=== PATIENT | female | born 1935 | race Caucasian/White ===

== ENCOUNTER 2016-09-15 10:03 | Inpatient (IN) | payer MEDICARE, OTHER ==
[2016-09-15 10:17] LABS: Hematocrit 43 % (35-47); Hemoglobin 14.3 g/dl (12.0-16.0); Mean Corpuscular HGB Conc 33 g/dl (31-36); Mean Corpuscular Hemoglobin 31 pg (27-31); Mean Corpuscular Volume 94 fL (80-97); Mean Platelet Volume 7 um3 (7.4-10.4); Red Blood Count 4.63 10^6/ul (4.0-5.4); Red Cell Distribution Width 12 % (10.5-15); White Blood Count 9.5 10^3/ul (3.5-10.8)
[2016-09-15 10:30] LABS: Albumin 4.1 g/dL (3.2-5.2); BUN/Creatinine Ratio 18.5 (8-20); Calcium 9.7 mg/dL (8.6-10.3); EGFR African American 75.9 (>60); Globulin 2.7 g/dL (2-4); Potassium 3.6 mmol/L (3.5-5.0); Total Bilirubin 0.6 mg/dL (0.2-1.0); Total Protein 6.8 g/dL (6.4-8.9)
[2016-09-15 10:32] LABS: Troponin I 0.01 ng/mL (<0.04)
--- NOTE | 2016-09-15 10:41 | RAD ---
INDICATION: Slurred speech. COMPARISON: Comparison is made with a prior CT of the brain from July 09, 2015. TECHNIQUE: Contiguous axial sections of the brain were obtained from the skull base to the vertex without contrast. FINDINGS: The ventricles, cisterns and sulci are enlarged consistent with diffuse atrophy. There are multiple focal areas of decreased density in the subcortical and periventricular white matter suggestive of moderate chronic small vessel ischemic changes. There is no evidence for hemorrhage. No significant focal osseous abnormality is seen. The visualized portion of the paranasal sinuses and mastoid air cells appear clear. IMPRESSION: 1. NO EVIDENCE FOR GROSS ACUTE INFARCT, MASS EFFECT OR HEMORRHAGE. 2. ATROPHY AND FINDINGS MOST CONSISTENT WITH MODERATE CHRONIC SMALL VESSEL ISCHEMIC CHANGES.
[2016-09-15] MEDS ORDERED: Aspirin TAB* 325 MG PO ONE (11:21)
[2016-09-15] MEDS ORDERED: Acetaminophen TAB* 325 MG PO PRN (12:02)
--- NOTE | 2016-09-15 14:36 | ED ---
Nadia Rao Matthew, scribed for Joel Shetty MD on 09/15/16 at 1019 . Neurological HPI - HPI Summary HPI Summary: A 80 y/o female presents to the ED by EMS for left arm weakness since waking up this morning. However, since onset, her left arm weakness has since partially alleviated. The patient states that she woke-up with this symptom. Associated symptoms include slurred speech and left sided facial droop. The patient denies any pain. She states that she woke-up to use the restroom at approximately 2:00 and felt fine at that time; however, an exact timeline is unknown. She did not take her daily dose of aspirin this morning. She is not on blood thinners. PMHx includes HTN, AFib, and 2 TIAs. She has No Hx of ID. - History of Current Complaint Chief Complaint: EDNeurologicalDeficit Stated Complaint: POSSIBLE STROKE Time Seen by Provider: 09/15/16 10:09 Hx Obtained From: Patient Onset/Duration: Started hours ago, Still Present Timing: Constant Onset Severity: Moderate Current Severity: Mild Neurological Deficit Location: LUE Pain Intensity: 0 Pain Scale Used: 0-10 Numeric Character: Motor Weakness - LUE, Other: - Left sided facial droop Associated Signs and Symptoms: Positive: Weakness - LUE, Impaired Speech - Additional Pertinent History Primary Care Physician: JUDD - Allergy/Home Medications Allergies/Adverse Reactions: Allergies Allergy/AdvReac Type Severity Reaction Status Date / Time Latex Allergy Unknown Verified 09/15/16 10:09 Reaction Details Home Medications: Home Medications Lactobacillus [Probiotic] 2 cap PO BID 09/15/16 [History Confirmed 09/15/16] Psyllium [Metamucil] 0.52 gm PO TID 09/15/16 [History Confirmed 09/15/16] Sennosides-Docusate Sodium [Senna-S 8.6-50 mg] 1 tab PO BEDTIME 09/15/16 [ History Confirmed 09/15/16] PMH/Surg Hx/FS Hx/Imm Hx Endocrine/Hematology History: Denies: Hx Diabetes, Hx Systemic Lupus Erythematosus, Hx Sickle Cell Disease , Hx Thyroid Disease Cardiovascular History: Reports: Hx Hypertension, Hx Syncope Denies: Hx Congestive Heart Failure, Hx Pacemaker/ICD Respiratory History: Reports: Hx Asthma - A CHILD, Hx Seasonal Allergies Denies: Hx Chronic Obstructive Pulmonary Disease (COPD) GI History: Reports: Other GI Disorders - Used to have CONSTIPATION Denies: Hx Ulcer History: Reports: Hx Kidney Stones - Ureteral stones Denies: Hx Dialysis, Hx Renal Disease Musculoskeletal History: Denies: Hx Arthritis, Hx Rheumatoid Arthritis, Hx Gout, Hx Osteoporosis Sensory History: Reports: Hx Contacts or Glasses, Hx Hearing Aid Opthamlomology History: Reports: Hx Contacts or Glasses Neurological History: Reports: Hx Transient Ischemic Attacks (TIA) - current dx , Other Neuro Impairments/Disorders - "spells" Comment Only: Hx Dementia - vascular dementia? Psychiatric History: Reports: Hx Anxiety, Hx Depression - lonely Denies: Hx Panic Disorder - Cancer History Cancer Type, Location and Year: BREAST Hx Chemotherapy: No Hx Radiation Therapy: No Hx Palliative Cancer Treatment: No - Surgical History Surgery Procedure, Year, and Place: 1979 PARTIAL HYSTERECTOMY/1984 MODIFIED RADICAL MASTECTOMY / RT BREAST SURGERY FOR CA./1990 CERVICAL DISC FUSION ,/1993 PERIPHERAL SELECTIVE DENERRATION IN HEAD 1993 FOR DISTONIA.(?) / LT BREAST BIOSPY Hx Anesthesia Reactions: No Infectious Disease History: No Infectious Disease History: Denies: Hx Hepatitis, Hx Human Immunodeficiency Virus (HIV), History Other Infectious Disease, Traveled Outside the [place] in Last 30 Days - Family History Family History: No FHx of malignant hyperthermia. No FHx of anesthesia reaction - Social History Alcohol Use: None Substance Use Type: Reports: None Smoking Status (MU): Never Smoked Tobacco Have You Smoked in the Last Year: No Review of Systems Constitutional: Negative Eyes: Negative ENT: Negative Cardiovascular: Negative Respiratory: Negative Gastrointestinal: Negative Genitourinary: Negative Musculoskeletal: Negative Skin: Negative Neurological: Other - Left sided facial droop Positive: Weakness - LUE, Slurred Speech Psychological: Normal All Other Systems Reviewed And Are Negative: Yes Physical Exam Vital Signs On Initial Exam: Initial Vitals Temp Pulse Resp BP Pulse Ox 98.8 F 69 14 152/79 98 09/15/16 10:05 09/15/16 10:05 09/15/16 10:05 09/15/16 10:05 09/15/16 10:05 Appearance: Positive: Well-Appearing, Well-Nourished Skin: Positive: Warm, Skin Color Reflects Adequate Perfusion, Dry Head/Face: Positive: Normal Head/Face Inspection Eyes: Positive: Normal ENT: Positive: Normal ENT inspection Neck: Positive: Supple, Nontender Respiratory/Lung Sounds: Positive: Clear to Auscultation, Breath Sounds Present Cardiovascular: Positive: RRR Abdomen Description: Positive: Nontender, Soft Bowel Sounds: Positive: Present Musculoskeletal: Positive: Normal Neurological: Positive: Facial Droop - left sided, Slurred Speech Diagnostics - Vital Signs Vital Signs Temp Pulse Resp BP Pulse Ox 09/15/16 10:05 98.8 F 69 14 152/79 98 - Laboratory Lab Results: Lab Results 09/15/16 09/15/16 09/15/16 Range/Units 10:00 10:00 10:00 WBC 9.5 (3.5-10.8) 10^3/ul RBC 4.63 (4.0-5.4) 10^6/ul Hgb 14.3 (12.0-16.0) g/dl Hct 43 (35-47) % MCV 94 (80-97) fL MCH 31 (27-31) pg MCHC 33 (31-36) g/dl RDW 12 (10.5-15) % Plt Count 266 (150-450) 10^3/ul MPV 7 L (7.4-10.4) um3 Neut % (Auto) 65.0 (38-83) % Lymph % (Auto) 25.9 (25-47) % Mesa % (Auto) 6.8 (1-9) % Eos % (Auto) 1.5 (0-6) % Baso % (Auto) 0.8 (0-2) % Absolute Neuts (auto) 6.2 (1.5-7.7) 10^3/ul Absolute Lymphs (auto) 2.5 (1.0-4.8) 10^3/ul Absolute Monos (auto) 0.6 (0-0.8) 10^3/ul Absolute Eos (auto) 0.1 (0-0.6) 10^3/ul Absolute Basos (auto) 0.1 (0-0.2) 10^3/ul Absolute Nucleated RBC 0 10^3/ul Nucleated RBC % 0 INR (Anticoag Therapy) 0.96 (0.89-1.11) Sodium 138 (133-145) mmol/L Potassium 3.6 (3.5-5.0) mmol/L Chloride 106 (101-111) mmol/L Carbon Dioxide 25 (22-32) mmol/L Anion Gap 7 (2-11) mmol/L BUN 17 (6-24) mg/dL Creatinine 0.92 (0.51-0.95) mg/dL Est GFR ( Amer) 75.9 (>60) Est GFR (Non-Af Amer) 59.0 (>60) BUN/Creatinine Ratio 18.5 (8-20) Glucose 118 H (70-100) mg/dL Lactic Acid (0.5-2.0) mmol/L Calcium 9.7 (8.6-10.3) mg/dL Total Bilirubin 0.60 (0.2-1.0) mg/dL AST 19 (13-39) U/L ALT 19 (7-52) U/L Alkaline Phosphatase 51 (34-104) U/L Troponin I 0.01 (<0.04) ng/mL Total Protein 6.8 (6.4-8.9) g/dL Albumin 4.1 (3.2-5.2) g/dL Globulin 2.7 (2-4) g/dL Albumin/Globulin Ratio 1.5 (1-3) / Range/Units 10:00 WBC (3.5-10.8) 10^3/ul RBC (4.0-5.4) 10^6/ul Hgb (12.0-16.0) g/dl Hct (35-47) % MCV (80-97) fL MCH (27-31) pg MCHC (31-36) g/dl RDW (10.5-15) % Plt Count (150-450) 10^3/ul MPV (7.4-10.4) um3 Neut % (Auto) (38-83) % Lymph % (Auto) (25-47) % Mesa % (Auto) (1-9) % Eos % (Auto) (0-6) % Baso % (Auto) (0-2) % Absolute Neuts (auto) (1.5-7.7) 10^3/ul Absolute Lymphs (auto) (1.0-4.8) 10^3/ul Absolute Monos (auto) (0-0.8) 10^3/ul Absolute Eos (auto) (0-0.6) 10^3/ul Absolute Basos (auto) (0-0.2) 10^3/ul Absolute Nucleated RBC 10^3/ul Nucleated RBC % INR (Anticoag Therapy) (0.89-1.11) Sodium (133-145) mmol/L Potassium (3.5-5.0) mmol/L Chloride (101-111) mmol/L Carbon Dioxide (22-32) mmol/L Anion Gap (2-11) mmol/L BUN (6-24) mg/dL Creatinine (0.51-0.95) mg/dL Est GFR ( Amer) (>60) Est GFR (Non-Af Amer) (>60) BUN/Creatinine Ratio (8-20) Glucose (70-100) mg/dL Lactic Acid 1.0 (0.5-2.0) mmol/L Calcium (8.6-10.3) mg/dL Total Bilirubin (0.2-1.0) mg/dL AST (13-39) U/L ALT (7-52) U/L Alkaline Phosphatase (34-104) U/L Troponin I (<0.04) ng/mL Total Protein (6.4-8.9) g/dL Albumin (3.2-5.2) g/dL Globulin (2-4) g/dL Albumin/Globulin Ratio (1-3) Result Diagrams: 09/15/16 10:00 09/15/16 10:00 Lab Statement: Any lab studies that have been ordered have been reviewed, and results considered in the medical decision making process. - CT Brain CT CT Interpretation: No Acute Changes - IMPRESSION: 1. NO EVIDENCE FOR GROSS ACUTE INFARCT, MASS EFFECT OR HEMORRHAGE. 2. ATROPHY AND FINDINGS MOST CONSISTENT WITH MODERATE CHRONIC SMALL VESSEL ISCHEMIC CHANGES. CT Interpretation Completed By: Radiologist - EKG 10:11 Cardiac Rate: NL - 69 bpm EKG Rhythm: Sinus Rhythm EKG Interpretation: RBBB; EKG Comparison: No Significant Change - 07/11/15 Course/Dx - Course Assessment/Plan: A 80 y/o female presents to the ED by EMS for left arm weakness since waking up this morning. Exact last time seen normal is unknown. The patient states that she woke-up at approximately 2:00 this morning and felt fine at that time. Associated symptoms include slurred speech and left sided facial droop. The patient denies any pain. EKG shows NSR at 69 bpm w/ RBBB and no significant change since 07/11/15. Brain CT shows no evidence for gross acute infarct, mass effect or hemorrhage. Labs were reviewed. Discussed the case with Nader who will admit the patient, as well as Dr. Grimaldo who will see the patient on the floor. - Diagnoses Provider Diagnoses: CVA (cerebral vascular accident) - Physician Notifications Discussed Care of Patient With: Dr. Grimaldo (Neurology) at 11:24 -- Notified of patient's history and will evaluate the patient on the floor. Nader ( Hospitalist PA) at 11:32 -- Notified of patient's history and will admit the patient. - Critical Care Time Critical Care Time: 30-74 min Discharge - Discharge Plan Condition: Stable Disposition: ADMITTED TO [facility] The documentation as recorded by the Nadia donohue Matthew accurately reflects the service I personally performed and the decisions made by , Joel Shetty MD.
[2016-09-15] MEDS: clonazePAM TAB(*) 0.5 MG PO SCH ×2 (15:22→20:11)
[2016-09-15] MEDS: Clopidogrel TAB* 75 MG PO SCH (15:22)
[2016-09-15] MEDS: Psyllium PAK PO SCH ×2 (15:22→20:09)
[2016-09-15 15:25] LABS: Urine Bacteria 2+ (Absent); Urine Bilirubin Negative (Negative); Urine Glucose Negative (Negative); Urine Nitrite Positive (Negative)
--- NOTE | 2016-09-15 19:06 | HP ---
ADMISSION HISTORY AND PHYSICAL: DATE OF ADMISSION: 09/15/16 PRIMARY CARE PROVIDER: Dr. Barrios. SUPERVISING PHYSICIAN: Shashank Hamm MD.* (DICTATED BY MONROE SCOTT) CHIEF COMPLAINT: Left upper extremity weakness. HISTORY OF PRESENT ILLNESS: This is a pleasant 80-year-old female with a history of prior TIAs, questionable history of paroxysmal atrial fibrillation, as well as hypertension, hyperlipidemia, anxiety disorder, history of cervical dystonia, and breast cancer status post mastectomy, who presented to the emergency department with complaints of left upper extremity weakness, some slurred speech and left facial droop. It is unclear if the patient awoke with these symptoms or they were just first noted at approximately 5 a.m. this morning. The patient felt as though her left hand was completely paralyzed and she was unable to move it. The patient denies any visual changes, no syncope. No associated chest pain or dyspnea. She has noted bilateral ankle swelling over the last couple of weeks but denies associated chest pain or orthopnea. She is very active at baseline and denies any changes in exercise tolerance. She notes some mild nausea this morning and a couple of loose bowel movements but she recently increased her laxatives as she does have chronic constipation and felt better after moving her bowels. The patient denies any other recent illnesses including fever or cough, vomiting or diarrhea. The patient has had at least 2 prior TIAs and it sounds like she may have had a history of paroxysmal atrial fibrillation. She states that she has been seen by brick carrier in the past but is unsure of who and exactly when that was. It does look like the patient had a Holter monitor done in December 2013 which showed us a 10-second interval of SVT versus transient atrial fibrillation, during which she was asymptomatic. The patient has been maintained on a full-dose aspirin but is not fully anticoagulated with Coumadin. She is familiar with Coumadin and states that that is a medication she never wanted to be on. PAST MEDICAL HISTORY: 1. History of TIAs. 2. Paroxysmal atrial fibrillation. 3. Hypertension. 4. Hyperlipidemia. 5. History of cervical dystonia, maintained on scheduled benzodiazepines for muscle relaxants. 6. Anxiety disorder. 7. History of breast cancer status post mastectomy. PAST SURGICAL HISTORY: 1. Mastectomy. 2. Neck surgery x2 - the patient is unsure what procedures were completed. 3. Partial hysterectomy. HOME MEDICATIONS: 1. Aspirin 325 mg p.o. daily. 2. Lipitor 10 mg p.o. daily. 3. Vitamin D3 at 2000 units p.o. daily. 4. Lexapro 10 mg p.o. daily. 5. Probiotic 2 capsules p.o. twice daily. 6. Losartan 100 mg p.o. daily. 7. Psyllium 1 capsule p.o. 3 times daily. 8. Senna-S 8.6/50 one tablet p.o. at bedtime. 9. Amlodipine 5 mg p.o. daily. 10. Clonazepam 0.5 mg p.o. b.i.d. SOCIAL HISTORY: The patient is an assisted living resident at [facility]. Her brother lives in the area and acts as her healthcare proxy. She denies any smoking history and no regular alcohol consumption. REVIEW OF SYSTEMS: As noted above in HPI. PHYSICAL EXAMINATION GENERAL: This is a very pleasant elderly female, in no acute distress. She is lying comfortably on a hospital stretcher and accompanied by her brother and [id number]. VITAL SIGNS: Temperature 98.8 degrees Fahrenheit, pulse 69 beats per minute, respiratory rate 14, oxygen saturation 98% on room air, blood pressure 152/79 mmHg. HEENT: Head is normocephalic and atraumatic. Mucous membranes are pink and moist. NECK: Neck is supple and free of lymphadenopathy and no JVD appreciated. RESPIRATORY: Lungs are clear to auscultation with normal work of breathing and no wheezes, crackles, or rhonchi noted. CARDIOVASCULAR: Heart has a regular rate and rhythm without murmurs, rubs, or gallops. ABDOMEN: Abdomen is soft and nontender to palpation with bowel sounds present. EXTREMITIES: Trace lower extremity edema bilaterally. SKIN: Limited exam shows no concerning rashes or lesions. NEUROLOGIC: EOMs are intact. The patient does have some obvious left facial droop with an asymmetric smile. Her eyebrow raise is maintained and symmetric. She has no tongue deviation. Her left soft palate is slightly asymmetric in rise. No tongue deviation noted. No difficulty with shoulder shrug. 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 No deficits appreciated and lower extremity strength is 5/5. Sensation is grossly intact. Romberg is negative. Gait was not assessed. LABORATORY EVALUATION: CBC is largely unremarkable, though white blood cell count is 9500, hemoglobin 14.3 g/dL, and a platelet count of 266,000. INR is normal at 0.96. Comprehensive metabolic panel is essentially unremarkable with a sodium of 138 mmol/L, potassium 3.6 mmol/L, BUN is 17, and creatinine 0.92. Transaminases and total bilirubin within normal limits. Troponin negative at 0.01. IMAGIN. CT of the brain shows no acute process, evidence of chronic small vessel ischemic changes, however. 2. EKG shows a sinus rhythm with right bundle-branch block, unchanged from prior. ASSESSMENT AND PLAN: This is a 80-year-old female with a history of prior transient ischemic attacks, paroxysmal atrial fibrillation, hypertension, hyperlipidemia, anxiety disorder, and prior breast cancer who presented with left upper extremity weakness, facial droop, and expressive aphasia, which seems to be clearing during her time in the emergency department. 1. Suspected cerebrovascular accident - the patient's deficits include left upper extremity weakness, expressive aphasia and left facial droop. The patient notes improvement in her strength and clarity of speech since her time in the emergency department. It does sound like she has had a history of paroxysmal atrial fibrillation. Dr. Grimaldo, neurologist, is consulting at this time. We will plan to obtain an MRI before a decision on anticoagulation will be made but continue full dose aspirin and plan to increase her statin. We will obtain a fasting lipid panel tomorrow morning. We will maintain telemetry monitoring overnight and an echocardiogram to evaluate for presence of thrombus. We will hold her antihypertensives at this point and allow permissive hypertension up to a systolic pressure of approximately 180 mmHg. 2. History of paroxysmal atrial fibrillation - there does appear to be a Holter monitor from 2013 confirming presence of a short run of either atrial fibrillation or supraventricular tachycardia and it sounds like she has discussed anticoagulation in the past and had declined it. She sounds like she would be willing to consider the newer novel oral anticoagulants but is not interested in Coumadin. We will maintain on telemetry at this time. The patient is not on a beta-gerardo or calcium channel gerardo at home and we will not initiate one at this time. 3. History of transient ischemic attacks. 4. Hypertension - holding antihypertensives at this time. 5. Hyperlipidemia - increase Lipitor to 40 mg daily. 6. History of cervical dystonia - maintained on b.i.d. clonazepam as a muscle relaxant. 7. Anxiety disorder - continue Lexapro. 8. History of breast cancer status post mastectomy, states that she did not require chemotherapy or radiation in the past. 9. Code status - the patient is signed DNR in her file. 10. Healthcare proxy is listed as her brother, Merrill Tolentino. 11. DVT prophylaxis - we will hold on Lovenox until MRI is completed to avoid hemorrhagic stroke. DISPOSITION: The patient is being admitted to inpatient status for suspected CVA. Expected length of stay is greater than 2 midnights. MONROE SCOTT CC: Dr. Barrios * [id number]/CPS #: [id number] SHANTELLE
[2016-09-15] MEDS: Senna TAB PO SCH (20:11)
[2016-09-15] MEDS: Docusate CAP* 100 MG PO SCH (20:11)
--- NOTE | 2016-09-15 21:17 | CONS ---
NEUROLOGY CONSULTATION: DATE OF CONSULT: 09/15/16 REFERRING PHYSICIAN: Dr. Joel Shetty. PRIMARY CARE PROVIDER: Dr. Jenny Barrios. LOCATION: She is in the emergency to be admitted to [address] [place] [address]. CHIEF COMPLAINT: Left-sided weakness. HISTORY OF PRESENT ILLNESS: Diana Thomas is a 80-year-old right-handed woman who was in her usual state of health when she woke up this morning and had difficulty moving her left side. She is acco mpanied by her brother and [id number]. An ambulance was summoned and she was brought into the em ergency room. In the emergency room, she had improvement in the left arm weakness which she said wa s completely limp when she first woke up. She still notes her speech is not normal. She had some di fficulty standing when she first got up. She was able to walk before the ambulance got there and br ought her in. When Dr. Joel Shetty examined her, he noted some weakness of the left facial muscul ature, slurred speech, but otherwise apparently good strength in the limbs. She was not deemed a TP A candidate given the unknown time of onset and improvement. PAST MEDICAL HISTORY: Notable for hypertension, anxiety, depression, history of breast cancer, dalia ejsse with mastectomy. MEDICATIONS: At home consist of : 1. Clonazepam 1 mg p.o. b.i.d. 2. Losartan 100 mg p.o. daily. 3. Lexapro 10 mg p.o. daily. 4. Lipitor 10 mg p.o. daily. 5. Aspirin 325 mg p.o. daily. 6. Amlodipine 5 mg p.o. daily. ALLERGIES: She is said to be allergic to LATEX. FAMILY HISTORY: Noncontributory. SOCIAL HISTORY: She is a nonsmoker and there is no history of alcohol abuse. REVIEW OF SYSTEMS: Notable for mild right frontal headache which just began today, she does not rou tinely get headaches. She has had any recent falls, fevers, or infections. There has been no recen t change in medication and she takes her medications regularly. There is no history of diabetes or heart disease. PHYSICAL EXAM: She is a little thin but well hydrated. Blood pressure 170/80, heart rate 65 to 70 and regular, respiratory rate 18, temperature 98.8 temporally. Neck is supple. Heart is in a regula r rate and rhythm without murmurs. Oral mucosa is moist and atraumatic. Carotid pulses are present and no cervical bruits. Lungs are clear anterolaterally. Neurologically, pupils, fundi, and eye movements are normal. Visual rogers are full to confrontatio n. Facial musculature is normal for mild left lower facial weakness. Palate and tongue appear mason l. Tongue protrudes in the midline. Palate rises symmetrically. She has had some mild buccal lingu al dysarthria. Hearing is intact. Motor exam reveals good strength proximally and distally in upper and lower extremities. There is n o pronator drift. Sensory exam is intact to light touch and vibratory sensation. Finger taps are normal and symmetrical in the hands. There is no rest tremor. Reflexes are hypoacti ve, but present and symmetric. Plantar is flexor on the right and extensor on the left. I did not attempt to ambulate her. Language is fluent. She is a good historian. Memory seems preserved and attention and concentratio n and fund of knowledge are all adequate. DIAGNOSTIC STUDIES/LAB DATA: Laboratory data includes a CT of the brain which I reviewed which reve aled some patchy low density area in the deep hemispheres bilaterally, but no evidence of hemorrhage s or acute infarction. She had a carotid ultrasound on 12/31/13, which revealed some carotid stenos is estimated less than 50% bilaterally. Additional laboratory data notable for normal CBC today, no rmal chemistries other than nonfasting glucose of 118. INR is 0.96. IMPRESSION: Impression is that of a right hemisphere stroke. She should be admitted to the telemet ry and have an MRI of the brain. I would recommend also that she have a transthoracic echocardiogra m and a carotid ultrasound. I would avoid giving her dye as she has had some renal insufficiency in the past and her estimated GFR is 59. I recommended adding Plavix to her aspirin 75 mg once per da y and I have written the order. Her fasting lipid profile should be checked as well. I will follow her with you. [id number]/[facility] #: [id number]
[2016-09-16 05:44] LABS: HDL Cholesterol 70.8 mg/dL
[2016-09-16] MEDS: Psyllium PAK PO SCH ×3 (08:01→21:56)
[2016-09-16] MEDS: clonazePAM TAB(*) 0.5 MG PO SCH ×2 (09:08→21:57)
[2016-09-16] MEDS: Aspirin TAB* 325 MG PO SCH (09:08)
[2016-09-16] MEDS: Atorvastatin* 40 MG TAB PO SCH (09:08)
[2016-09-16] MEDS: Clopidogrel TAB* 75 MG PO SCH (09:08)
[2016-09-16] MEDS: Citalopram TAB* 20 MG PO SCH (09:08)
--- NOTE | 2016-09-16 12:45 | PN ---
Subjective Date of Service: 09/16/16 Interval History: C/O difficulty chewing food on the Left side of her mouth. She denies arm or leg weakness. No new c/o. Objective Active Medications: Acetaminophen (Tylenol Tab*) 650 mg PO Q4H PRN PRN Reason: FEVER/PAIN Aspirin (Aspirin Tab*) 325 mg PO DAILY [facility] Last Admin: 09/16/16 09:08 Dose: 325 mg Atorvastatin Calcium (Lipitor*) 40 mg PO DAILY [facility] Last Admin: 09/16/16 09:08 Dose: 40 mg Citalopram Hydrobromide (Celexa Tab*) 20 mg PO DAILY [facility] Last Admin: 09/16/16 09:08 Dose: 20 mg Clonazepam (Klonopin Tab(*)) 0.5 mg PO BID [facility] Last Admin: 09/16/16 09:08 Dose: 0.5 mg Clopidogrel Bisulfate (Plavix Tab*) 75 mg PO DAILY [facility] Last Admin: 09/16/16 09:08 Dose: 75 mg Docusate Sodium (Colace Cap*) 100 mg PO BEDTIME [facility] Last Admin: 09/15/16 20:11 Dose: Not Given Psyllium Hydrophilic Mucilloid (Metamucil Corby*) 0.5 pkt PO TID [facility] Last Admin: 09/16/16 08:01 Dose: Not Given Senna (Senokot Tab*) 1 tab PO BEDTIME [facility] Last Admin: 09/15/16 20:11 Dose: 1 tab Vital Signs 09/15/16 09/15/16 09/15/16 13:00 13:30 14:00 Temperature Pulse Rate 67 65 Respiratory Rate Blood Pressure 156/76 164/87 169/82 (mmHg) O2 Sat by Pulse 98 98 Oximetry 09/15/16 09/15/16 09/15/16 14:35 14:49 15:22 Temperature 97.8 F Pulse Rate 65 Respiratory 16 16 16 Rate Blood Pressure 149/71 (mmHg) O2 Sat by Pulse 96 Oximetry 09/15/16 09/15/16 09/15/16 15:36 17:22 19:38 Temperature 98.0 F Pulse Rate 70 Respiratory 16 16 17 Rate Blood Pressure 136/69 (mmHg) O2 Sat by Pulse 95 Oximetry 09/15/16 09/15/16 09/15/16 20:11 22:11 23:44 Temperature 98.8 F Pulse Rate 68 Respiratory 19 19 16 Rate Blood Pressure 145/68 (mmHg) O2 Sat by Pulse 95 Oximetry 09/16/16 09/16/16 09/16/16 03:20 07:37 08:00 Temperature 98.4 F 98.4 F Pulse Rate 70 69 Respiratory 16 16 16 Rate Blood Pressure 148/72 143/67 (mmHg) O2 Sat by Pulse 94 96 Oximetry 09/16/16 09/16/16 09:08 11:08 Temperature Pulse Rate Respiratory 16 16 Rate Blood Pressure (mmHg) O2 Sat by Pulse Oximetry Oxygen Devices in Use Now: None Appearance: Alert, sitting up in bed. In good spirits. Looks comfortable. Eyes: No Scleral Icterus Ears/Nose/Mouth/Throat: Clear Oropharnyx, Mucous Membranes Moist Neck: NL Appearance and Movements; NL JVP, No Thyroid Enlargement, Masses Respiratory: Symmetrical Chest Expansion and Respiratory Effort, Clear to Auscultation, Clear to Percussion Extremities: No Edema, No Clubbing, Cyanosis, - Skin: No Rash or Ulcers, No Nodules or Sclerosis, - Neurological: Alert and Oriented x 3, NL Sensation, - - Marked L facial weakness. 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 No tremor. Result Diagrams: 09/15/16 10:00 09/15/16 10:00 Additional Lab and Data: Lab Results 09/15/16 09/15/16 09/15/16 Range/Units 10:00 10:00 10:00 WBC 9.5 (3.5-10.8) 10^3/ul RBC 4.63 (4.0-5.4) 10^6/ul Hgb 14.3 (12.0-16.0) g/dl Hct 43 (35-47) % MCV 94 (80-97) fL MCH 31 (27-31) pg MCHC 33 (31-36) g/dl RDW 12 (10.5-15) % Plt Count 266 (150-450) 10^3/ul MPV 7 L (7.4-10.4) um3 Neut % (Auto) 65.0 (38-83) % Lymph % (Auto) 25.9 (25-47) % [place] % (Auto) 6.8 (1-9) % Eos % (Auto) 1.5 (0-6) % Baso % (Auto) 0.8 (0-2) % Absolute Neuts (auto) 6.2 (1.5-7.7) 10^3/ul Absolute Lymphs (auto) 2.5 (1.0-4.8) 10^3/ul Absolute Monos (auto) 0.6 (0-0.8) 10^3/ul Absolute Eos (auto) 0.1 (0-0.6) 10^3/ul Absolute Basos (auto) 0.1 (0-0.2) 10^3/ul Absolute Nucleated RBC 0 10^3/ul Nucleated RBC % 0 INR (Anticoag Therapy) 0.96 (0.89-1.11) Sodium 138 (133-145) mmol/L Potassium 3.6 (3.5-5.0) mmol/L Chloride 106 (101-111) mmol/L Carbon Dioxide 25 (22-32) mmol/L Anion Gap 7 (2-11) mmol/L BUN 17 (6-24) mg/dL Creatinine 0.92 (0.51-0.95) mg/dL Est GFR ( Amer) 75.9 (>60) Est GFR (Non-Af Amer) 59.0 (>60) BUN/Creatinine Ratio 18.5 (8-20) Glucose 118 H (70-100) mg/dL Lactic Acid (0.5-2.0) mmol/L Calcium 9.7 (8.6-10.3) mg/dL Total Bilirubin 0.60 (0.2-1.0) mg/dL AST 19 (13-39) U/L ALT 19 (7-52) U/L Alkaline Phosphatase 51 (34-104) U/L Troponin I 0.01 (<0.04) ng/mL Total Protein 6.8 (6.4-8.9) g/dL Albumin 4.1 (3.2-5.2) g/dL Globulin 2.7 (2-4) g/dL Albumin/Globulin Ratio 1.5 (1-3) / Range/Units 10:00 WBC (3.5-10.8) 10^3/ul RBC (4.0-5.4) 10^6/ul Hgb (12.0-16.0) g/dl Hct (35-47) % MCV (80-97) fL MCH (27-31) pg MCHC (31-36) g/dl RDW (10.5-15) % Plt Count (150-450) 10^3/ul MPV (7.4-10.4) um3 Neut % (Auto) (38-83) % Lymph % (Auto) (25-47) % [place] % (Auto) (1-9) % Eos % (Auto) (0-6) % Baso % (Auto) (0-2) % Absolute Neuts (auto) (1.5-7.7) 10^3/ul Absolute Lymphs (auto) (1.0-4.8) 10^3/ul Absolute Monos (auto) (0-0.8) 10^3/ul Absolute Eos (auto) (0-0.6) 10^3/ul Absolute Basos (auto) (0-0.2) 10^3/ul Absolute Nucleated RBC 10^3/ul Nucleated RBC % INR (Anticoag Therapy) (0.89-1.11) Sodium (133-145) mmol/L Potassium (3.5-5.0) mmol/L Chloride (101-111) mmol/L Carbon Dioxide (22-32) mmol/L Anion Gap (2-11) mmol/L BUN (6-24) mg/dL Creatinine (0.51-0.95) mg/dL Est GFR ( Amer) (>60) Est GFR (Non-Af Amer) (>60) BUN/Creatinine Ratio (8-20) Glucose (70-100) mg/dL Lactic Acid 1.0 (0.5-2.0) mmol/L Calcium (8.6-10.3) mg/dL Total Bilirubin (0.2-1.0) mg/dL AST (13-39) U/L ALT (7-52) U/L Alkaline Phosphatase (34-104) U/L Troponin I (<0.04) ng/mL Total Protein (6.4-8.9) g/dL Albumin (3.2-5.2) g/dL Globulin (2-4) g/dL Albumin/Globulin Ratio (1-3) Assess/Plan/Problems-Billing Assessment: - Patient Problems (1) CVA (cerebral vascular accident) Current Visit: Yes Status: Acute Code(s): I63.9 - CEREBRAL INFARCTION, UNSPECIFIED SNOMED Code(s): 761422533 Comment: R hemispheric. MRI, echo, carotid US pending. Soft texture diet mod ordered. (2) HTN (hypertension) Current Visit: No Status: Chronic Priority: Medium Code(s): I10 - ESSENTIAL (PRIMARY) HYPERTENSION SNOMED Code(s): 41517816 Comment: Hold amlodipine and losartan. Permissive HTN.
--- NOTE | 2016-09-16 13:46 | ECHO ---
Patient: ELVIS ARIZMENDI [facility] Rec#: [id number] : 1935 Date: 09/16/2016 Age: 80y Height: 157.48 cm / 62.0 in Weight: 61.23 kg / 135.0 lbs Sex: F BSA: 1.62 Room#: 444 Admit Date#: 09/15/2016 Type: Inpatient Referring: Nader Vigil Reading: Chris Aguirre DO [place] Taper: Ligia Frias RDCS CC: Hipolito Grimaldo MD CC: Jenny Barrios MD Transthoracic Echocardiogram Indication: CVA BP: 148/72 HR: 69 Rhythm: NSR Findings History: Prior TIA, ? PAF in the past,HTN,HLD,anxiety,breast cancer with mastectomy. Technical Comments: The study quality is good. Completed at 1210. Left Ventricle: The left ventricular chamber size is normal. Mild concentric left ventricular hypertrophy is observed. Global left ventricular wall motion and contractility are within normal limits. There is normal left ventricular systolic function. The estimated ejection fraction is 60-65%. Normal left atrial size makes clinically significant diastolic dysfunction unlikely. Left Atrium: The left atrial chamber size is normal. Right Ventricle: The right ventricular chamber size and systolic function are within normal limits. Right Atrium: The right atrial cavity size is normal. Aortic Valve: The aortic valve is trileaflet. There is no evidence of aortic regurgitation. There is no evidence of aortic stenosis. Mitral Valve: The mitral valve leaflets appear normal. Mild mitral annular calcification present. There is a trace of mitral regurgitation. There is no evidence of mitral stenosis. Tricuspid Valve: The tricuspid valve leaflets are normal. There is trace tricuspid regurgitation. Unable to estimate the right ventricular systolic pressure. There is no tricuspid stenosis. Pulmonic Valve: The pulmonic valve appears normal. There is no evidence of pulmonic regurgitation. There is no pulmonic stenosis. Pericardium: There is no significant pericardial effusion. Aorta: There is no dilatation of the ascending aorta. There is no dilatation of the aortic arch. There is no dilation of the aortic root. Pulmonary Artery: The main pulmonary artery appears normal. Venous: The inferior vena cava appears normal in size. There is a greater than 50% respiratory change in the inferior vena cava dimension. Conclusions The left ventricular chamber size is normal. Mild concentric left ventricular hypertrophy is observed. There is normal left ventricular systolic function with an estimated LVEF of 60-65% Normal left atrial size. The right ventricular chamber size and systolic function are within normal limits. Mild mitral annular calcification present. Compared to prior study from 05/2015, no significant changes noted Measurements Name Value Normal Range RVIDd (AP) 2D 2.5 cm (0.9 - 2.6) RVDdMajor (2D) 2.8 cm (2.2 - 4.4) RAd ISD 4CH 4.1 cm (3.4 - 4.9) RA (A4C)W 3.2 cm (2.9 - 4.6) IVSd (2D) 1.2 cm (0.6 - 1) LVPWd (2D) 1.2 cm (0.6 - 1) LVIDd (2D) 3.8 cm (3.6 - 5.4) LVIDs (2D) 2.3 cm - LV FS (2D) 23 % (25 - 45) Aortic Annulus 1.6 cm (1.4 - 2.6) Ao root diameter (2D) 2.8 cm (2.1 - 3.5) Ascending Ao 3.2 cm (2.1 - 3.4) Aortic arch 1.9 cm (1.8 - 3.4) LA dimension (AP) 2D 2.5 cm (2.3 - 3.8) LAd ISD 4CH 4.7 cm (2.9 - 5.3) LA ISD 4CH W 3.2 cm (2.5 - 4.5) Name Value Normal Range LA ESV SP 4CH (A/L) 21 ml - LA ESV SP 2CH (A/L) 42 ml - LA ESV BP (A/L) 30 ml - LA ESV BP (A/L) index 18.31 ml/m2 - LA ESV SP 4CH (MOD) 20 ml - LA ESV SP 2CH (MOD) 41 ml - Name Value Normal Range MV E-wave Vmax 0.7 m/sec - MV deceleration time 307 msec - MV A-wave Vmax 1.1 m/sec - MV E:A ratio 0.63 ratio - LV septal e' Vmax 0.06 m/sec - LV lateral e' Vmax 0.08 m/sec - LV E:e' septal ratio 11.67 ratio - LV E:e' lateral ratio 8.75 ratio - Name Value Normal Range AV Vmax 1.7 m/sec - AV VTI 34.7 cm - AV peak gradient 10.84 mmHg - AV mean gradient 4.48 mmHg - LVOT Vmax 1.2 m/sec - LVOT VTI 27 cm - LVOT peak gradient 5.78 mmHg - LVOT mean gradient 2.63 mmHg - Name Value Normal Range TR peak gradient 26 mmHg - RAP 3 mmHg - IVC diameter 1.3 cm -
--- NOTE | 2016-09-16 17:49 | RAD ---
INDICATION: CVA. COMPARISON: Comparison is made with a prior CT of the brain from September 15, 2016 and a prior MRI of the brain from May 28, 2015. TECHNIQUE: Sagittal T1, axial T1, T2, susceptibility, FLAIR and diffusion weighted images were obtained. FINDINGS: The ventricles, cisterns and sulci are prominent consistent with diffuse atrophy. There are prominent areas of increased signal intensity in T2-weighted images present within the subcortical and periventricular white matter most consistent with moderate to severe chronic small vessel ischemic changes. There is a small area of increased signal intensity in T2-weighted images with associated restricted diffusion in the right parietal lobe in the periventricular white matter which also extends to the subcortical white matter consistent with an acute infarct. No hemorrhage is present. This measures 1.2 x 0.6 cm in size. The visualized portion of the paranasal sinuses and mastoid air cells appear clear. IMPRESSION: 1. FINDINGS CONSISTENT WITH ACUTE NONHEMORRHAGIC INFARCT IN THE RIGHT PARIETAL LOBE. 2. ATROPHY AND FINDINGS CONSISTENT WITH MODERATE TO SEVERE CHRONIC SMALL VESSEL ISCHEMIC CHANGES.
--- NOTE | 2016-09-16 21:13 | RAD ---
INDICATION: CVA. COMPARISON: Comparison is made with a prior CT angiogram of the head and neck from May 27, 2015. TECHNIQUE: Multiple grayscale, color and Doppler tracings of the common, internal and external carotid and vertebral arteries were obtained. Stenosis estimations reflect velocity criteria that it been correlated to angiographic stenosis calculations based on the distal internal carotid diameter. RIGHT CAROTID: There is mild hypoechoic plaque within the right carotid bulb and proximal internal carotid artery.. The peak systolic velocity in the proximal right internal carotid artery is 68 cm/s and the maximum end-diastolic velocity is 16 cm/s. The peak systolic velocity in the distal right common carotid artery is 62 cm/s and the maximum end-diastolic velocity is 11 cm/s. The internal to common carotid artery ratio is 1.1. This would be consistent with a less than 50% stenosis. LEFT CAROTID: There is mild hyperechoic plaque within the left carotid bulb and proximal internal carotid artery. The peak systolic velocity in the proximal left internal carotid artery is 50 cm/s and the maximum end-diastolic velocity is 12 cm/s. The peak systolic velocity in the distal left common carotid artery is 83 cm/s and the maximum end-diastolic velocity is 13 cm/s. The internal to common carotid artery ratio is 0.6. This would be consistent with a less than 50% stenosis. VERTEBRALS: There is antegrade flow in both vertebral arteries. IMPRESSION: THERE IS MILD PLAQUE PRESENT WITHIN THE PROXIMAL INTERNAL CAROTID ARTERIES. NO HEMODYNAMICALLY SIGNIFICANT STENOSIS IS PRESENT. CPT II Codes: 3100F
--- NOTE | 2016-09-16 21:46 | PN ---
NEUROLOGY FOLLOWUP NOTE: DATE OF CONSULT: 09/16/16 LOCATION: She is an inpatient at room 444. HOSPITALIST: David Desouza MD PRIMARY CARE PROVIDER: Jenny Barrios MD CHIEF COMPLAINT: Left-sided weakness. INTERVAL HISTORY: Since yesterday, Ms. Thomas feels she is doing reasonably well. She does not feel that her left arm is weak at all, but she does feel her left hand is a little bit clumsy. She notes her left lower face remains weak and her speech remains off a bit. It is a little bit hard to chew and swallow. No choking problems. She has been walking and she does not feel, there was any difficulty with gait or specifically any weakness on her left leg. She does not have any headaches, change in vision, or numbness. No difficulty coming up with words. MEDICATIONS: Reviewed and she remains on aspirin 325 mg p.o. daily, Celexa 20 mg p.o. daily, clonazepam 0.5 mg p.o. b.i.d. p.r.n., she is now on Plavix 75 mg p.o. daily, and atorvastatin 40 mg p.o. daily. PHYSICAL EXAM: She is a well hydrated, afebrile. Blood pressure is running 150/ 80 to 90, heart rate is 70 and seems regular, respirations 14, and oxygen saturation is 95% on room air. Oral mucosa is moist. Heart is in a regular rhythm and I do not hear any murmurs. Carotid pulses are symmetrical and there are no bruits. Neurological Exam: Pupils are equal and eye movements are normal. Visual rogers are full to confrontation. Facial musculature is notable for central pattern left facial weakness. Facial sensation to light touch is symmetric. Speech is dysarthric, but understandable. Motor exam reveals normal tone and strength proximally and distally in the upper and lower extremities. There is no pronator drift. Finger taps are mildly clumsy in the left hand. [id number] maneuver is mildly clumsy in the left hand as well. Coordination of the right is normal. I did not attempt to ambulate her. She is alert and oriented with intact memory and fluent language. DIAGNOSTIC STUDIES/LAB DATA: New laboratory data includes a fasting lipid profile from this morning notable for a total cholesterol of 167, LDL of 84, and HDL of 70. She had a transthoracic echocardiogram earlier today and the results are pending. IMPRESSION: Right hemisphere stroke, probably subcortical given the preserved sensation. Her carotid ultrasound is pending as is the MRI of the brain. She is on dual- antiplatelet therapy. She has been started on a statin and her lipid profile is pretty good even without it. We will await the results of her remaining studies. If she does not show evidence of a cardioembolic source or severe carotid stenosis, then she can be discharged on dual-antiplatelet therapy and a statin. My plan would be to see her in followup on Plavix monotherapy after 60 to 90 days of dual antiplatelet therapy pending the results of the remaining studies. [id number]/[facility] #: [id number] SHANTELLE
[2016-09-16] MEDS: Docusate CAP* 100 MG PO SCH (21:59)
[2016-09-16] MEDS: Senna TAB PO SCH (21:59)
[2016-09-17] MEDS: Clopidogrel TAB* 75 MG PO SCH (08:55)
[2016-09-17] MEDS: Atorvastatin* 40 MG TAB PO SCH (08:55)
[2016-09-17] MEDS: Aspirin TAB* 325 MG PO SCH (08:55)
[2016-09-17] MEDS: clonazePAM TAB(*) 0.5 MG PO SCH (08:55)
[2016-09-17] MEDS: Citalopram TAB* 20 MG PO SCH (08:55)
[2016-09-17] MEDS: Psyllium PAK PO SCH (08:57)
[2016-09-17 13:55] VITALS: BP 136/59
--- NOTE | 2016-09-17 23:38 | DS ---
DISCHARGE SUMMARY: DATE OF ADMISSION: 09/15/16 DATE OF DISCHARGE: 09/17/16 PRIMARY CARE PROVIDER: Jenny Barrios MD PRIMARY DIAGNOSIS: Stroke. SECONDARY DIAGNOSES: 1. History of transient ischemic attacks. 2. History of paroxysmal atrial fibrillation. 3. Hypotension. 4. Hyperlipidemia. 5. Anxiety disorder. MEDICATIONS ON DISCHARGE: 1. Senna/docusate 1 tab twice daily. 2. Metamucil 0.52 g 3 times a day. 3. Probiotic 2 caps twice daily. 4. Clonazepam 1 tab twice daily. 5. Vitamin D3 2000 units daily. 6. Lexapro 10 mg daily. 7. Lipitor 10 mg daily. 8. Aspirin full dose 325 mg daily. 9. Losartan 50 mg daily, decreased from 100 mg daily. 10. Plavix 75 mg daily. 11. Keflex 500 mg 2 times a day for 7 days. PERTINENT MICROBIOLOGY: Urine positive for E. coli greater than 100,000. PERTINENT LABORATORY DATA: Total cholesterol 167, LDL 84, HDL 70. PERTINENT IMAGING DATA: Brain MRI findings consistent with acute nonhemorrhagic infarct in the right parietal lobe. Atrophy and findings consistent with moderate- to-severe chronic small vessel ischemic changes. Transthoracic echocardiogram. Impression: Left ventricular chamber size is normal. Mild concentric left ventricular hypertrophy is observed. There is normal left ventricular systolic function with an estimated LVEF 60% to 65%. Normal left atrial size. The right ventricular chamber size and systolic function within normal limits. Mild mitral annular calcification is present. Carotid Doppler study. Impression: There is mild plaque present within the proximal internal carotid arteries. No hemodynamically significant stenosis present. HISTORY OF PRESENT ILLNESS AND HOSPITAL COURSE: This is a 80-year-old female with past medical history of prior TIAs and a questionable history of paroxysmal atrial fibrillation, which was not monitored on telemetry after 48 hours, hypertension, hyperlipidemia, anxiety disorder, who had been in her usual state of health developed left upper extremity weakness and slurred speech associated with left facial droop. The MRI was consistent with a new acute right parietal lobe infarct. The patient was seen in conjunction with Neurology. She should be maintained on full-dose aspirin as well as clopidogrel for at least 60 to 90 days before discontinuation. On the day of discharge, the patient is interactive. She still had a moderate left facial droop and some mild weakness in her left hand. She feels comfortable returning to [facility]. The patient's E. coli was present on urine on presentation. She will be discharged on Keflex for 7 additional days. At followup, please; 1. Follow blood pressure for continued control, please increase losartan back to 100 if blood pressure remain stable. 2. Monitor for progress. Physical therapy, speech therapy, occupational therapy, advised continuation or additional modalities as needed. No other specific labs or vital signs that need followup. She had no evidence of atrial fibrillation while here. She was not started on full dose anticoagulation. Reasons to return to the hospital included but not limited to worsening or recurrent symptoms, numbness, weakness, loss of consciousness, near loss of consciousness, chest pain, shortness of breath, nausea, vomiting, fevers, chills , inability to obtain or tolerate medication were discussed with the patient. She acknowledged understanding. TIME SPENT: Greater than 45 minutes were spent on discharge of this patient of which greater than half was spent [id number] with the patient. CC: Jenny Barrios MD* [id number]/[facility] #: [id number] MTDD
== END 2016-09-17 14:50 | DRG 65 ==
LOC: ED 10:03 → MEDTELE 12:02
PROVIDERS: ADMIT Internal Medicine; ATTEND Internal Medicine
DX: I63.9 Cerebral infarction, unspecified (principal); G81.94 Hemiplegia, unspecified affecting left nondominant side; G24.8 Other dystonia; I48.0 Paroxysmal atrial fibrillation; R47.01 Aphasia; I10 Essential (primary) hypertension; E78.5 Hyperlipidemia, unspecified; R29.810 Facial weakness; I45.10 Unspecified right bundle-branch block; F41.9 Anxiety disorder, unspecified; Z85.3 Personal history of malignant neoplasm of breast; Z90.10 Acquired absence of unspecified breast and nipple; Z79.82 Long term (current) use of aspirin; Z79.899 Other long term (current) drug therapy; Z91.040 Latex allergy status
CPT/HCPCS: 36415; 70450; 70551; 80053; 80061; 81003; 81015; 83605; 84484; 85025; 85610; 87077; 87086; 87186; 93005; 93306; 93880; A9270-GY

== ENCOUNTER 2018-07-24 14:17 | Inpatient (IN) | payer MEDICARE ==
[~2018-07-24 14:17] MED LIST: Buffered Lidocaine 0.9% SYRIN* 5 ML/SYR SYRINGE INTRADERM ONE; Dexamethasone TAB* 4 MG PO ONE; Famotidine IV* 10 MG/ML 2 ML (20 mg) IV ONE; Ondansetron TAB* 4 MG PO ONE
[2018-07-24] MEDS ORDERED: Ondansetron ODT TAB* 4 MG ONE (14:42)
[2018-07-24] MEDS ORDERED: Famotidine IV* 10 MG/ML 2 ML (20 mg) ONE (14:42)
[2018-07-24] MEDS ORDERED: Dexamethasone TAB* 4 MG ONE (14:42)
[2018-07-24] MEDS ORDERED: Clindamycin 900 MG/D5W BAG(*) 900 MG/50 ML BAG IVPB ONE (15:00)
[2018-07-24] MEDS ORDERED: fentaNYL* 50 MCG/ML 2 ML VIAL (100 MCG VIAL) ONE ×2 (15:10→18:01)
[2018-07-24] MEDS ORDERED: KETAMINE HCL* 50 MG/ML 10 ML VIAL ONE (15:10)
[2018-07-24] MEDS ORDERED: Midazolam* 1 MG/ML 2 ML VIAL (2 MG) ONE (15:10)
[2018-07-24] MEDS ORDERED: Vancomycin(*) 1,000 MG VIAL ONE (16:34)
[2018-07-24] MEDS ORDERED: Glycopyrrolate IV* 0.2 MG/ML 1 ML VIAL ONE (17:38)
[2018-07-24] MEDS ORDERED: Propofol* 10 MG/ML 20 ML BTL ONE (17:38)
[2018-07-24] MEDS ORDERED: EPHEDrine (Pressors)* 50 MG/ML VIAL ONE (17:38)
[2018-07-24] MEDS ORDERED: Bupivacaine 0.5% SDV PF* 30ML VIAL ONE (17:38)
[2018-07-24] MEDS ORDERED: Phenylephrine INJ* 10 MG/ML 1 ML VIAL (10 MG) ONE (17:39)
[2018-07-24] MEDS ORDERED: Morphine VIAL* 10 MG/ML 1 ML VIAL ONE (19:46)
[2018-07-24] MEDS ORDERED: Ondansetron INJ* 2 MG/ML VIAL IV PRN (20:08)
[2018-07-24] MEDS ORDERED: Morphine VIAL* 4 MG/ML VIAL (1 ml vial) IV PRN (20:08)
[2018-07-24] MEDS ORDERED: traMADol TAB* 50 MG PO PRN (20:08)
[2018-07-24] MEDS ORDERED: Ondansetron TAB* 4 MG PO PRN (20:08)
[2018-07-24] MEDS ORDERED: Magnesium Hydroxide LIQ* 30 ML UDC PO PRN (20:08)
[2018-07-24] MEDS ORDERED: diPHENhydraMINE IV* 50 MG/ML 1 ml VIAL (BENADRYL) IV PRN (20:08)
[2018-07-24] MEDS ORDERED: Meclizine TAB* 12.5 MG PO PRN (20:12)
[2018-07-24] MEDS ORDERED: Bupivacaine 0.25% SDV PF* 10 ML VIAL INJ ONE (20:20)
[2018-07-24] MEDS: Acetaminophen TAB* 325 MG PO SCH (23:04)
[2018-07-24] MEDS: Atorvastatin* 10 MG TAB PO SCH (23:04)
[2018-07-24] MEDS: Magnesium Hydroxide LIQ* 30 ML UDC PO SCH (23:05)
[2018-07-24] MEDS: Docusate CAP* 100 MG PO SCH (23:05)
[2018-07-25] MEDS: Clindamycin 600 MG IVPREMIX(* 600 MG/50 ML SDV IV SCH ×3 (00:39→16:19)
[2018-07-25 05:01] LABS: Hematocrit 33 % (35-47); Hemoglobin 11.1 g/dl (12.0-16.0); Mean Platelet Volume 6.8 fL (7.4-10.4); Platelet Count 328 10^3/ul (150-450)
[2018-07-25 05:18] LABS: EGFR Non-African American 87.7 (>60)
[2018-07-25] MEDS: Acetaminophen TAB* 325 MG PO SCH ×3 (05:55→21:54)
[2018-07-25] MEDS: Enoxaparin(*) 40 MG/0.4 ML SYR SUBCUT SCH (09:28)
[2018-07-25] MEDS: Docusate CAP* 100 MG PO SCH ×2 (09:33→21:55)
[2018-07-25] MEDS: Losartan TAB* 25 MG PO SCH (09:33)
[2018-07-25] MEDS: Magnesium Hydroxide LIQ* 30 ML UDC PO SCH ×2 (09:33→21:58)
[2018-07-25] MEDS: Citalopram TAB* 20 MG PO SCH (09:34)
[2018-07-25] MEDS: amLODIPine TAB* 5 MG PO SCH (09:34)
[2018-07-25] MEDS: CMCS: Pantoprazole TAB (NF) 40 MG TAB PO SCH (09:34)
--- NOTE | 2018-07-25 10:04 | PN ---
Progress Note - Progress Note Date of Service: 07/25/18 SOAP: Subjective: []Patient seen at bedside. Pain well managed right arm. Denies SOB, CP, palpitations or nausea. Unsure if she will be able to return to current assisted living at [facility] or will need a higher lever of care. She has yet to work with therapy this morning. Objective: [] Vital Signs Temp 97.2 F 07/25/18 07:41 Pulse 66 07/25/18 07:41 Resp 18 07/25/18 08:00 BP 134/68 07/25/18 07:41 Pulse Ox 100 07/25/18 08:00 Intake & Output 07/24/18 07/25/18 07/25/18 18:59 06:59 18:59 Intake Total 50 2480 Output Total 1725 Balance 50 755 Weight 132 lb Intake: IV Fluids 50 2000 CLINDAMYCIN 900 MG 50 LR 2000 Oral 480 Output: Carmichael 1625 Estimated Blood Loss 100 Laboratory Results - last 24 hr 07/25/18 07/25/18 04:51 04:51 Hgb 11.1 L Hct 33 L Plt Count 328 MPV 6.8 L Sodium 141 Potassium 3.8 Chloride 107 Carbon Dioxide 28 Anion Gap 6 BUN 18 Creatinine 0.65 Est GFR ( Amer) 106.1 Est GFR (Non-Af Amer) 87.7 BUN/Creatinine Ratio 27.7 H Glucose 151 H Calcium 9.0 Right upper extremity splint and [place] dry and intact Fingers are moderately edematous and ecchymotic but she is moving all digits well and has full sensation in all digits Assessment: []s/p ORIF right distal humerus fracture POD #1 Plan: []PT OT NWB RUE May need higher lever of rehab- will see how she does with therapy today
[2018-07-25] MEDS: oxyCODONE/Acetamin 5/325 MG* TAB PO PRN ×2 (12:31→18:07)
--- NOTE | 2018-07-25 14:46 | OP ---
DATE OF OPERATION: 07/24/18 - ROOM #337 DATE OF : 39 SURGEON: Shashank Mendenhall MD COMMERCIAL LENDER: MONROE Davis, followed by MONROE Solomon. An assistant bookkeeper was needed for the entirety of the procedure to aid in positioning of the arm and retraction. ANESTHESIOLOGIST: Dr. Blair. ANESTHESIA: General plus peripheral nerve block. PRE-OPERATIVE DIAGNOSIS: Right displaced and unstable distal humerus fracture. POST-OPERATIVE DIAGNOSIS: Right displaced and unstable distal humerus fracture. OPERATIVE PROCEDURE: Open reduction and internal fixation displaced right distal humerus fracture. INDICATIONS: Diana is 82 years old. She fell and had a very displaced distal humerus fracture. It did not look like it involved the articular surface, but it shared of the very distal portion of the distal humerus. The fracture was very distal. I talked to her about the need to reduce the fracture to try to preserve as much elbow function as possible. Certainly, she is at high risk given that she is 82; however, I did think that her elbow would do better if we realign the distal humerus. She and her daughter understood the risks and benefits and they wanted to proceed. ESTIMATED BLOOD LOSS: 2 mL. COMPLICATIONS: None. FINDINGS: See above and below. DESCRIPTION OF PROCEDURE: Diana was seen in the preoperative holding area. The correct site, side, and procedure were identified. We came back to the operating room where she was positioned in the lateral decubitus position with the right arm on the arm hui. The arm was prescrubbed and then prepped and draped in the usual fashion. A time-out was performed. The arm was exsanguinated with the Esmarch and the tourniquet was inflated to 250 mmHg. I made a longitudinal incision in the midline of the posterior upper arm extending down on to the proximal ulna. Full thickness flaps were raised off the triceps fascia and the periosteum of the olecranon. The ulnar nerve was dissected free and transposed. The vessel loop was placed around the ulnar nerve for gentle retraction and to identify throughout the case. I then opened up the retinaculum on the medial and lateral aspects to expose the posterolateral distal humerus as well as the medial column. The combination of the knife, the curette, the rongeur, irrigation and suction was used to debride the fracture hematoma until I had a nice bony edges that could aid in establishing the reduction. There was quite a bit of comminution actually and there was good portion of the posterolateral distal humerus and that was in multiple small fragments, the olecranon fossa itself is in multiple small fragments, there were several small fragments of the medial column as well. It did not appear that there was a split in the articular surface. Once I had everything clean, I went ahead and mobilized everything and I first got my reduction on the posterolateral aspect. This was held in place with the point reduction clamp followed by K-wire. I then placed 1 screw of the column to aid in securing the reduction. I then came to the medial side and hyperflexed the elbow, removing the arm hui so that this close down the fracture nicely and restore the articular alignment. I then placed 1 K- wire of the medial column. I then brought in my straight medial plate and pinned this into the place. I then came over and brought in my Synthes variable angle posterolateral distal humerus plate and this was pinned into place. This was then secured proximally with the couple of 3.5 mm cortical screws. I then shot multiple screws into the capitellum using the 4 distal locking screws. These were all variable angle locking screws. The column screw was removed as it would have violated the radiocapitellar joint surface. The plate was secured proximally with another cortical screw. I then came medial and I secured the medial column with multiple locking screws distally and some cortical screws proximally. I tried to get [address] from medial collateral; however, I did not want to go and ultimately, I did not want to force it and so, I had multiple unicortical locking screws in the medial column and in the lateral column. Once the plates were secured, I obtained a final fluoroscopic imaging, initially one of the locking screws medially was too long and in the ulnohumeral joint, so this was replaced from a 48 down to a 38 and came back to the subchondral bone at the distal humerus. The joint moved freely without any clicking, catching or popping with both flexion and extension as well as pronation and supination. Final fluoroscopic imaging confirmed excellent reduction and good position of the hardware. The area was then copiously irrigated. I did take some vancomycin powder and placed this all along both my posterolateral and medial plates. The retinacula were closed medially and laterally to cover the plate. The ulnar nerve was transposed into the subcutaneous position. Some more vancomycin powder was placed in the subcutaneous tissue. Some 0-Vicryl sutures were used to reapproximate the subcutaneous tissue. The skin was then closed with cosme. Some 0.25% Marcaine was infiltrated around the incision and to supplement the peripheral nerve block. The wound was dressed with Xeroform, 4x4s, ABD's, sterile Webril, and a long- arm splint with both volar and posterior plaster slabs was applied, one in the elbow in about 30 to 45 degrees of flexion. Tourniquet was deflated during the wound closure and the hand pinked up immediately. She was taken to the recovery room in stable condition. [id number]/[facility] #: [id number] SHANTELLE
[2018-07-25] MEDS: Atorvastatin* 10 MG TAB PO SCH (21:55)
[2018-07-25] MEDS: Senna TAB PO SCH (21:55)
[2018-07-26] MEDS: Acetaminophen TAB* 325 MG PO SCH ×3 (04:57→22:06)
[2018-07-26 05:45] LABS: Hematocrit 31 % (35-47); Hemoglobin 10.9 g/dl (12.0-16.0); Mean Platelet Volume 6.9 fL (7.4-10.4); Platelet Count 316 10^3/ul (150-450)
[2018-07-26] MEDS: Enoxaparin(*) 40 MG/0.4 ML SYR SUBCUT SCH (08:40)
[2018-07-26] MEDS: Magnesium Hydroxide LIQ* 30 ML UDC PO SCH ×2 (09:39→22:09)
[2018-07-26] MEDS: Docusate CAP* 100 MG PO SCH ×2 (09:39→22:09)
[2018-07-26] MEDS ORDERED: Artificial Tears* 15 ML BTL BOTH EYES PRN (09:43)
[2018-07-26] MEDS: CMCS: Pantoprazole TAB (NF) 40 MG TAB PO SCH (09:46)
[2018-07-26] MEDS: amLODIPine TAB* 5 MG PO SCH (09:46)
[2018-07-26] MEDS: Citalopram TAB* 20 MG PO SCH (09:46)
[2018-07-26] MEDS: Losartan TAB* 25 MG PO SCH (09:46)
[2018-07-26] MEDS ORDERED: diPHENhydraMINE PO* 25 MG ONE (10:23)
[2018-07-26] MEDS ORDERED: clonazePAM TAB(*) 1 MG ONE (10:24)
[2018-07-26] MEDS: clonazePAM TAB(*) 1 MG PO SCH ×2 (10:27→22:07)
[2018-07-26] MEDS: diPHENhydraMINE PO* 25 MG PO PRN ×2 (10:28→22:07)
--- NOTE | 2018-07-26 11:06 | PN ---
Progress Note - Progress Note Date of Service: 07/26/18 SOAP: Subjective: Pt is doing well. Pain controlled. Numbness in pinky finger, other fingers are not numb. Denies F/C, CP/SOB Objective: PE- 82 y/o WDWN F NAD, A&Ox3 RUE- splint c/d/i, diffuse swelling and ecchymosis of hand, decreased sensation 5th finger, otherwise SILT distally, brisk cap refill all fingers Vital Signs Temp Pulse Resp BP Pulse Ox 98.4 F 72 16 148/65 93 07/26/18 03:30 07/26/18 03:30 07/26/18 10:28 07/26/18 03:30 07/26/18 03:30 Laboratory Results - last 24 hr 07/26/18 05:36 Hgb 10.9 L Hct 31 L Plt Count 316 MPV 6.9 L Assessment: []s/p ORIF right distal humerus fracture POD #2 Plan: []Cont PT OT NWB RUE Diffuse erythematous rash likely contact dermatitis- oral Benadryl, hypoallergenic sheets to see if improves Will require higher level of care/SNF on DC
[2018-07-26] MEDS: Atorvastatin* 10 MG TAB PO SCH (22:06)
[2018-07-26] MEDS: Senna TAB PO SCH (22:07)
[2018-07-27] MEDS: Acetaminophen TAB* 325 MG PO SCH ×3 (05:01→22:05)
[2018-07-27 06:01] LABS: Hematocrit 33 % (35-47); Hemoglobin 11.1 g/dl (12.0-16.0); Mean Platelet Volume 7.4 fL (7.4-10.4); Platelet Count 340 10^3/ul (150-450)
[2018-07-27] MEDS: Enoxaparin(*) 40 MG/0.4 ML SYR SUBCUT SCH (08:41)
[2018-07-27] MEDS: clonazePAM TAB(*) 1 MG PO SCH ×2 (10:07→22:06)
[2018-07-27] MEDS: Citalopram TAB* 20 MG PO SCH (10:07)
[2018-07-27] MEDS: Losartan TAB* 25 MG PO SCH (10:07)
[2018-07-27] MEDS: amLODIPine TAB* 5 MG PO SCH (10:07)
[2018-07-27] MEDS: CMCS: Pantoprazole TAB (NF) 40 MG TAB PO SCH (10:07)
[2018-07-27] MEDS: Docusate CAP* 100 MG PO SCH ×2 (10:11→22:06)
[2018-07-27] MEDS: Magnesium Hydroxide LIQ* 30 ML UDC PO SCH ×2 (10:11→22:05)
--- NOTE | 2018-07-27 12:26 | PN ---
Progress Note - Progress Note Date of Service: 07/27/18 SOAP: Subjective: Pt is doing well. Rash improved. Numbness in pinky improved. Denies F/C, CP/SOB , calf pain Objective: PE- 82 y/o WDWN F NAD, A&Ox3 RUE- spling c/d/i, able F/E fingers, brisk cap refill, SILT distally all finger Vital Signs Temp Pulse Resp BP Pulse Ox 98.1 F 74 16 130/63 100 07/27/18 11:01 07/27/18 11:01 07/27/18 11:01 07/27/18 11:01 07/27/18 11:01 Laboratory Results - last 24 hr 07/27/18 05:25 Hgb 11.1 L Hct 33 L Plt Count 340 MPV 7.4 Assessment: []s/p ORIF right distal humerus fracture POD #3 Plan: []Cont PT OT NWB RUE Pain control with tylenol Diffuse erythematous rash likely contact dermatitis- improving and is less symptomatic Possible DC to SNF on 07/28
[2018-07-27] MEDS: Senna TAB PO SCH (22:05)
[2018-07-27] MEDS: Atorvastatin* 10 MG TAB PO SCH (22:06)
[2018-07-28 05:58] LABS: Hematocrit 33 % (35-47); Hemoglobin 11.1 g/dl (12.0-16.0); Mean Platelet Volume 6.8 fL (7.4-10.4); Platelet Count 380 10^3/ul (150-450)
[2018-07-28] MEDS: Acetaminophen TAB* 325 MG PO SCH ×3 (06:21→20:24)
[2018-07-28] MEDS: Losartan TAB* 25 MG PO SCH (09:15)
[2018-07-28] MEDS: clonazePAM TAB(*) 1 MG PO SCH ×2 (09:15→20:24)
[2018-07-28] MEDS: CMCS: Pantoprazole TAB (NF) 40 MG TAB PO SCH (09:15)
[2018-07-28] MEDS: amLODIPine TAB* 5 MG PO SCH (09:15)
[2018-07-28] MEDS: Docusate CAP* 100 MG PO SCH ×2 (09:15→20:24)
[2018-07-28] MEDS: Citalopram TAB* 20 MG PO SCH (09:15)
[2018-07-28] MEDS: Enoxaparin(*) 40 MG/0.4 ML SYR SUBCUT SCH (09:16)
[2018-07-28] MEDS: Magnesium Hydroxide LIQ* 30 ML UDC PO SCH ×2 (09:18→21:17)
--- NOTE | 2018-07-28 10:39 | PN ---
Progress Note - Progress Note Date of Service: 07/28/18 SOAP: Subjective: []Patient seen OOB in chair, eating breakfast. Denies significant arm pain. Denies, dizziness, SOB, CP/ Reportedly did poorly w PT over weekend. + Constipation complaints. Objective: [] Vital Signs Temp 98.8 F 07/28/18 07:43 Pulse 73 07/28/18 07:43 Resp 18 07/28/18 09:15 BP 156/79 07/28/18 07:43 Pulse Ox 95 07/28/18 08:00 Intake & Output 07/27/18 07/28/18 07/28/18 18:59 06:59 18:59 Intake Total 740 880 Output Total 1050 1200 550 Balance -310 -320 -550 Intake: Oral 740 880 Output: Urine 500 600 550 Straight Cath 550 600 Other: Estimated Void Small Date of Last Bowel 07/28/18 Movement # Bowel Movements 1 Estimated Stool Amount Small # Voids 1 Laboratory Results - last 24 hr 07/28/18 05:46 Hgb 11.1 L Hct 33 L Plt Count 380 MPV 6.8 L Right arm dressing and splint dry and intac swelling improving in fingers, moving well, +ecchymosis all digits mild paresthesia right pinky finger, otherwise sensation intact distally Assessment: [] s/p ORIF right distal humerus POD#4 Plan: []PT/OT NWB RUE meds on board for constipation [facility] vs [facility] depending how she does with therapy today
[2018-07-28] MEDS: Atorvastatin* 10 MG TAB PO SCH (20:24)
[2018-07-28] MEDS: diPHENhydraMINE PO* 25 MG PO PRN (20:25)
[2018-07-28] MEDS: Senna TAB PO SCH (20:25)
[2018-07-29] MEDS: Acetaminophen TAB* 325 MG PO SCH ×3 (04:59→22:34)
[2018-07-29 05:51] LABS: Hematocrit 32 % (35-47); Hemoglobin 11.1 g/dl (12.0-16.0); Mean Platelet Volume 6.5 fL (7.4-10.4); Platelet Count 382 10^3/ul (150-450)
[2018-07-29] MEDS: Magnesium Hydroxide LIQ* 30 ML UDC PO SCH ×2 (08:52→22:37)
[2018-07-29] MEDS: Enoxaparin(*) 40 MG/0.4 ML SYR SUBCUT SCH (08:52)
[2018-07-29] MEDS: Losartan TAB* 25 MG PO SCH (09:50)
[2018-07-29] MEDS: clonazePAM TAB(*) 1 MG PO SCH ×2 (09:51→22:34)
[2018-07-29] MEDS: Citalopram TAB* 20 MG PO SCH (09:51)
[2018-07-29] MEDS: CMCS: Pantoprazole TAB (NF) 40 MG TAB PO SCH (09:52)
[2018-07-29] MEDS: amLODIPine TAB* 5 MG PO SCH (09:53)
[2018-07-29] MEDS: Docusate CAP* 100 MG PO SCH ×2 (09:53→22:39)
--- NOTE | 2018-07-29 10:42 | PN ---
Progress Note - Progress Note Date of Service: 07/29/18 SOAP: Subjective: []Patient seen OOB in chair. Pain well managed. Constipation resolved. Waiting to hear if bed will be available today at [facility]. Objective: [] Vital Signs Temp 98.6 F 07/29/18 07:32 Pulse 71 07/29/18 07:32 Resp 18 07/29/18 09:51 BP 142/66 07/29/18 07:32 Pulse Ox 96 07/29/18 08:00 Intake & Output 07/28/18 07/29/18 07/29/18 18:59 06:59 18:59 Intake Total 120 980 Output Total 1352 102 5017 Balance -1231 480 -1350 Intake: Oral 120 980 Output: Urine 701 300 800 Straight Cath 650 200 550 Other: Estimated Void Small Date of Last Bowel 07/28/18 Movement # Bowel Movements 1 Estimated Stool Amount Small Medium # Voids 1 Laboratory Results - last 24 hr 07/29/18 05:42 Hgb 11.1 L Hct 32 L Plt Count 382 MPV 6.5 L Right splint/RIOC dry and intact finger edema improving slightly, moderate ecchymosis hand and digits mild paresthesia 5th finger, feels slightly improved cap refill >2 sec Assessment: []s/p ORIF right distal humerus POD #5 Plan: []NWB RUE finger motion for edema Transfer to [facility] when authorization completed
[2018-07-29] MEDS: Senna TAB PO SCH (22:34)
[2018-07-29] MEDS: Atorvastatin* 10 MG TAB PO SCH (22:35)
[2018-07-30] MEDS: Acetaminophen TAB* 325 MG PO SCH ×3 (05:56→21:03)
--- NOTE | 2018-07-30 10:20 | PN ---
Progress Note - Progress Note Date of Service: 07/30/18 SOAP: Subjective: []Patient was seen and examined at bedside. RUE is nonpainful today. She feels well without chest pain, shortness of breath, dizziness, nausea. She straight caths herself at home and is unable to do so with her right arm immobilized, the assisted living she resides at is unable to offer this service. Objective: []General: OOB in chair, appears well RUE: Right splint/RICO dry and intact. Finger edema is improving slightly from yesterday, moderate ecchymosis of hand and digits cap refill >2 sec distally. Assessment: []s/p ORIF right distal humerus POD #6 Plan: []NWB RUE finger motion, hand elevation for edema Peer to peer yesterday confirmed SNF auth, later denied. shellfish manager is working to find appropriate placement for this patient. Vital Signs Temp 98.1 F 07/30/18 08:28 Pulse 65 07/30/18 08:28 Resp 16 07/30/18 08:00 BP 155/71 07/30/18 07:23 Pulse Ox 99 07/30/18 08:28 Intake & Output 07/29/18 07/30/18 07/30/18 18:59 06:59 18:59 Intake Total 240 880 Output Total 1350 1550 550 Balance -1110 -670 -550 Intake: Oral 240 880 Output: Urine 800 950 550 Straight Cath 550 600 Other: Estimated Void Small Estimated Stool Amount Medium Laboratory Last Values Hgb 11.1 g/dl (12.0-16.0) L 07/29/18 05:42 Hct 32 % (35-47) L 07/29/18 05:42 Plt Count 382 10^3/ul (150-450) 07/29/18 05:42 MPV 6.5 fL (7.4-10.4) L 07/29/18 05:42 Sodium 141 mmol/L (135-145) 07/25/18 04:51 Potassium 3.8 mmol/L (3.5-5.0) 07/25/18 04:51 Chloride 107 mmol/L (101-111) 07/25/18 04:51 Carbon Dioxide 28 mmol/L (22-32) 07/25/18 04:51 Anion Gap 6 mmol/L (2-11) 07/25/18 04:51 BUN 18 mg/dL (6-24) 07/25/18 04:51 Creatinine 0.65 mg/dL (0.51-0.95) 07/25/18 04:51 Est GFR ( Amer) 106.1 (>60) 07/25/18 04:51 Est GFR (Non-Af Amer) 87.7 (>60) 07/25/18 04:51 BUN/Creatinine Ratio 27.7 (8-20) H 07/25/18 04:51 Glucose 151 mg/dL (70-100) H 07/25/18 04:51 Calcium 9.0 mg/dL (8.6-10.3) 07/25/18 04:51
[2018-07-30] MEDS: amLODIPine TAB* 5 MG PO SCH (10:22)
[2018-07-30] MEDS: Citalopram TAB* 20 MG PO SCH (10:24)
[2018-07-30] MEDS: clonazePAM TAB(*) 1 MG PO SCH ×2 (10:25→21:04)
[2018-07-30] MEDS: Docusate CAP* 100 MG PO SCH ×2 (10:27→21:04)
[2018-07-30] MEDS: Losartan TAB* 25 MG PO SCH (10:28)
[2018-07-30] MEDS: CMCS: Pantoprazole TAB (NF) 40 MG TAB PO SCH (10:31)
[2018-07-30] MEDS: Magnesium Hydroxide LIQ* 30 ML UDC PO SCH ×2 (10:32→21:04)
[2018-07-30] MEDS: Enoxaparin(*) 40 MG/0.4 ML SYR SUBCUT SCH (10:36)
[2018-07-30] MEDS: Atorvastatin* 10 MG TAB PO SCH (21:03)
[2018-07-30] MEDS: Senna TAB PO SCH (21:03)
[2018-07-31] MEDS: Acetaminophen TAB* 325 MG PO SCH ×3 (05:29→21:08)
[2018-07-31] MEDS: Magnesium Hydroxide LIQ* 30 ML UDC PO SCH ×2 (08:57→21:16)
--- NOTE | 2018-07-31 09:31 | PN ---
Progress Note - Progress Note Date of Service: 07/31/18 SOAP: Subjective: []Patient seen and examined at bedside. She feels well and desires DC to home at [facility]. SHe has practived straight cathing herself with her left hand only with nursing staff and has been successful at this. She is progressing well with PT, she requests OT to work with her more to get dressed considering she may be going back to [facility] today. Denies CP, SOB, dizziness, nausea. Objective: []General: OOB in chair, appears well RUE: Right arm splint/RICO dry and intact. Edema and ecchymosis of hand is improving. Capillary refill less than two seconds distally. Sensation intact distally. Calves supple and nontender without erythema, edema or palpable cords Assessment: []s/p ORIF right distal humerus POD #7 Plan: []NWB RUE finger motion, hand elevation for edema Patient is able to self cath, she feels comfortable doing so with her left hand as she has been practicing with nursing staff. If [facility] will allow her to return today she will be DC'ed to her home there. Vital Signs Temp 99.3 F 07/31/18 08:42 Pulse 73 07/31/18 08:42 Resp 16 07/31/18 08:04 BP 151/66 07/31/18 08:42 Pulse Ox 95 07/31/18 08:42 Intake & Output 07/30/18 07/31/18 07/31/18 18:59 06:59 18:59 Intake Total 1140 460 Output Total 1850 825 600 Balance -710 -365 -600 Intake: Oral 1140 460 Output: Urine 1450 700 200 Straight Cath 400 125 400 Other: Estimated Void Small Small # Bowel Movements 0 # Voids 1 Laboratory Last Values Hgb 11.1 g/dl (12.0-16.0) L 07/29/18 05:42 Hct 32 % (35-47) L 07/29/18 05:42 Plt Count 382 10^3/ul (150-450) 07/29/18 05:42 MPV 6.5 fL (7.4-10.4) L 07/29/18 05:42 Sodium 141 mmol/L (135-145) 07/25/18 04:51 Potassium 3.8 mmol/L (3.5-5.0) 07/25/18 04:51 Chloride 107 mmol/L (101-111) 07/25/18 04:51 Carbon Dioxide 28 mmol/L (22-32) 07/25/18 04:51 Anion Gap 6 mmol/L (2-11) 07/25/18 04:51 BUN 18 mg/dL (6-24) 07/25/18 04:51 Creatinine 0.65 mg/dL (0.51-0.95) 07/25/18 04:51 Est GFR ( Amer) 106.1 (>60) 07/25/18 04:51 Est GFR (Non-Af Amer) 87.7 (>60) 07/25/18 04:51 BUN/Creatinine Ratio 27.7 (8-20) H 07/25/18 04:51 Glucose 151 mg/dL (70-100) H 07/25/18 04:51 Calcium 9.0 mg/dL (8.6-10.3) 07/25/18 04:51
[2018-07-31] MEDS: Enoxaparin(*) 40 MG/0.4 ML SYR SUBCUT SCH (10:01)
[2018-07-31] MEDS: CMCS: Pantoprazole TAB (NF) 40 MG TAB PO SCH (10:02)
[2018-07-31] MEDS: clonazePAM TAB(*) 1 MG PO SCH ×2 (10:02→21:08)
[2018-07-31] MEDS: amLODIPine TAB* 5 MG PO SCH (10:02)
[2018-07-31] MEDS: Losartan TAB* 25 MG PO SCH (10:02)
[2018-07-31] MEDS: Docusate CAP* 100 MG PO SCH ×2 (10:02→21:07)
[2018-07-31] MEDS: Citalopram TAB* 20 MG PO SCH (10:02)
[2018-07-31] MEDS: Atorvastatin* 10 MG TAB PO SCH (21:08)
[2018-07-31] MEDS: Senna TAB PO SCH (21:08)
[2018-08-01] MEDS: Acetaminophen TAB* 325 MG PO SCH ×3 (05:36→20:41)
[2018-08-01] MEDS: clonazePAM TAB(*) 1 MG PO SCH ×2 (08:26→20:41)
[2018-08-01] MEDS: Losartan TAB* 25 MG PO SCH (08:26)
[2018-08-01] MEDS: amLODIPine TAB* 5 MG PO SCH (08:27)
[2018-08-01] MEDS: Citalopram TAB* 20 MG PO SCH (08:27)
[2018-08-01] MEDS: Enoxaparin(*) 40 MG/0.4 ML SYR SUBCUT SCH (08:27)
[2018-08-01] MEDS: CMCS: Pantoprazole TAB (NF) 40 MG TAB PO SCH (08:27)
[2018-08-01] MEDS: Docusate CAP* 100 MG PO SCH ×2 (08:27→20:07)
[2018-08-01] MEDS: Magnesium Hydroxide LIQ* 30 ML UDC PO SCH ×2 (08:28→20:07)
--- NOTE | 2018-08-01 14:28 | PN ---
Progress Note - Progress Note Date of Service: 08/01/18 SOAP: Subjective: []Patient seen OOB in chair. No changes orthopedically. Cannot be guaranteed additional nursing staff for help at [place] until Saturday08/04/18. Patient is not safe with out help with dressing and straight cath procedures. Objective: [] Vital Signs Temp 98.9 F 08/01/18 11:33 Pulse 92 08/01/18 11:33 Resp 18 08/01/18 11:33 BP 144/68 08/01/18 11:33 Pulse Ox 96 08/01/18 11:33 Intake & Output 07/31/18 08/01/18 08/01/18 18:59 06:59 18:59 Intake Total 970 240 500 Output Total 1500 300 550 Balance -530 -60 -50 Intake: Oral 970 240 500 Output: Urine 600 0 550 Straight Cath 900 300 Other: Estimated Void Small # Bowel Movements 1 Estimated Stool Amount Small # Voids 1 Assessment: []s/p ORIF right distal humerus POD #8 Plan: []MAYRA ALEGRIA [place] Saturday 08/04 when additional nursing staff available
--- NOTE | 2018-08-01 18:25 | PN ---
Progress Note - Progress Note Date of Service: 08/01/18 Note: I have seen Ms. Thomas multiple times this week. She was seen again tonight on rounds. She continues to look better and better. She is having minimal pain. Motor function intact distally. A/P: Doing well POD#8, awaiting discharge likely Saturday. Will ask nursing staff to remove her IV.
[2018-08-01] MEDS: Senna TAB PO SCH (20:41)
[2018-08-01] MEDS: Atorvastatin* 10 MG TAB PO SCH (20:42)
[2018-08-02] MEDS: Acetaminophen TAB* 325 MG PO SCH ×3 (06:31→19:48)
[2018-08-02] MEDS: Enoxaparin(*) 40 MG/0.4 ML SYR SUBCUT SCH (08:09)
[2018-08-02] MEDS: clonazePAM TAB(*) 1 MG PO SCH ×2 (09:28→19:48)
[2018-08-02] MEDS: CMCS: Pantoprazole TAB (NF) 40 MG TAB PO SCH (09:29)
[2018-08-02] MEDS: Docusate CAP* 100 MG PO SCH ×2 (09:29→19:47)
[2018-08-02] MEDS: Losartan TAB* 25 MG PO SCH (09:30)
[2018-08-02] MEDS: Citalopram TAB* 20 MG PO SCH (09:31)
[2018-08-02] MEDS: amLODIPine TAB* 5 MG PO SCH (09:32)
[2018-08-02] MEDS: Magnesium Hydroxide LIQ* 30 ML UDC PO SCH ×2 (09:33→19:49)
--- NOTE | 2018-08-02 11:10 | PN ---
Progress Note - Progress Note Date of Service: 08/02/18 Note: Looking good this morning. OOB and moving fingers nicely. They are less swollen. Encourage activity and mobilization and ambulation. Plan for discharge on Saturday.
[2018-08-02] MEDS: Atorvastatin* 10 MG TAB PO SCH (19:47)
[2018-08-02] MEDS: Senna TAB PO SCH (19:47)
[2018-08-03] MEDS: Acetaminophen TAB* 325 MG PO SCH ×3 (05:58→20:02)
[2018-08-03] MEDS: Enoxaparin(*) 40 MG/0.4 ML SYR SUBCUT SCH (09:14)
[2018-08-03] MEDS: CMCS: Pantoprazole TAB (NF) 40 MG TAB PO SCH (10:26)
[2018-08-03] MEDS: amLODIPine TAB* 5 MG PO SCH (10:26)
[2018-08-03] MEDS: clonazePAM TAB(*) 1 MG PO SCH ×2 (10:26→20:02)
[2018-08-03] MEDS: Losartan TAB* 25 MG PO SCH (10:26)
[2018-08-03] MEDS: Citalopram TAB* 20 MG PO SCH (10:27)
[2018-08-03] MEDS: Docusate CAP* 100 MG PO SCH ×2 (10:29→20:03)
[2018-08-03] MEDS: Magnesium Hydroxide LIQ* 30 ML UDC PO SCH ×2 (10:29→20:03)
--- NOTE | 2018-08-03 13:05 | PN ---
Progress Note - Progress Note Date of Service: 08/03/18 SOAP: Subjective: Pt seen at bedside. No complaints today. Vital Signs: Temp Pulse Resp BP Pulse Ox 98.7 F 74 14 135/56 94 08/03/18 07:38 08/03/18 07:38 08/03/18 13:02 08/03/18 07:38 08/03/18 07:38 Laboratory Last Values Hgb 11.1 g/dl (12.0-16.0) L 07/29/18 05:42 Hct 32 % (35-47) L 07/29/18 05:42 Plt Count 382 10^3/ul (150-450) 07/29/18 05:42 MPV 6.5 fL (7.4-10.4) L 07/29/18 05:42 Sodium 141 mmol/L (135-145) 07/25/18 04:51 Potassium 3.8 mmol/L (3.5-5.0) 07/25/18 04:51 Chloride 107 mmol/L (101-111) 07/25/18 04:51 Carbon Dioxide 28 mmol/L (22-32) 07/25/18 04:51 Anion Gap 6 mmol/L (2-11) 07/25/18 04:51 BUN 18 mg/dL (6-24) 07/25/18 04:51 Creatinine 0.65 mg/dL (0.51-0.95) 07/25/18 04:51 Est GFR ( Amer) 106.1 (>60) 07/25/18 04:51 Est GFR (Non-Af Amer) 87.7 (>60) 07/25/18 04:51 BUN/Creatinine Ratio 27.7 (8-20) H 07/25/18 04:51 Glucose 151 mg/dL (70-100) H 07/25/18 04:51 Calcium 9.0 mg/dL (8.6-10.3) 07/25/18 04:51 Objective: A&Ox3, NAD. Splint clean and intact. Moves fingers well. NVI Assessment: 82 yo female s/p ORIF right elbow Plan: Pain control Plan for D/C to [place] Saturday
[2018-08-03] MEDS: Senna TAB PO SCH (20:02)
[2018-08-03] MEDS: Atorvastatin* 10 MG TAB PO SCH (20:02)
[2018-08-04] MEDS: Acetaminophen TAB* 325 MG PO SCH (05:10)
[2018-08-04] MEDS: Enoxaparin(*) 40 MG/0.4 ML SYR SUBCUT SCH (09:39)
[2018-08-04] MEDS: amLODIPine TAB* 5 MG PO SCH (09:40)
[2018-08-04] MEDS: Losartan TAB* 25 MG PO SCH (09:40)
[2018-08-04] MEDS: Citalopram TAB* 20 MG PO SCH (09:41)
[2018-08-04] MEDS: CMCS: Pantoprazole TAB (NF) 40 MG TAB PO SCH (09:41)
[2018-08-04] MEDS: Docusate CAP* 100 MG PO SCH (09:42)
[2018-08-04] MEDS: Magnesium Hydroxide LIQ* 30 ML UDC PO SCH (09:42)
[2018-08-04] MEDS: clonazePAM TAB(*) 1 MG PO SCH (09:42)
[2018-08-04 09:46] VITALS: BP 156/79
--- NOTE | 2018-08-04 10:10 | PN ---
Progress Note - Progress Note Date of Service: 08/04/18 SOAP: Subjective: []Patient seen and examined at bedside. She feels well without RUE pain, CP, SOB , dizziness, nausea. She is able to straight cath herself without difficulty. She is able to dress herself with help, she confirms she has help at [place] for this task. She feels comfortable DCing to home at [place] today. Objective: [] General: OOB walking around room, appears well, NAD RUE: Right arm splint/RICO clean, dry and intact. Edema and ecchymosis of hand is almost entirely resolved. Capillary refill less than two seconds distally. Sensation intact distally to light touch. Moving all digits well. Calves supple and nontender without erythema, edema or palpable cords Assessment: []s/p ORIF right distal humerus Plan: []NWB RUE finger motion, hand elevation DC home to [place] Vital Signs Temp 98.8 F 08/04/18 07:24 Pulse 87 08/04/18 07:24 Resp 18 08/04/18 09:42 BP 156/79 08/04/18 07:24 Pulse Ox 96 08/04/18 08:00 Intake & Output 08/03/18 08/04/18 08/04/18 18:59 06:59 18:59 Intake Total 200 1100 650 Output Total 100 1350 100 Balance 100 -250 550 Intake: Oral 200 1100 650 Output: Urine 1150 100 Straight Cath 100 200 Other: Estimated Stool Amount Medium
--- NOTE | 2018-08-04 14:51 | DS ---
AMENDED REPORT NOW INCLUDES DATE OF DISCHARGE AND DESIGNATED COSIGNER DISCHARGE SUMMARY: DATE OF ADMISSION: 07/24/18 DATE OF DISCHARGE: 08/04/18 PROVIDER: Dr. Shashank Mendenhall.* (DICTATED BY MONROE BARNES) BUTTONHOLE FACER: MONROE Davis PRE-OP DIAGNOSIS: Right displaced and unstable distal humerus fracture. OPERATIVE PROCEDURE: ORIF of the displaced right distal humerus fracture. DISPOSITION: Discharge will be to home. HISTORY: Diana is an 82-year-old female, who fell resulting in a displaced distal humerus fracture and elected to undergo an ORIF of this fracture. HOSPITAL COURSE: The patient was admitted to [facility] on . She underwent an ORIF of the right distal humerus fracture without complication. Postop day 1, she was well appearing, in no acute distress. Wound is clean, dry, and intact. Fingers not really edematous and ecchymotic, but moving digits well, has slow sensation. Ecchymosis and edema continued to improve throughout her hospital stay. She required a prolonged hospital stay due to neurogenic bladder in which she required self-cathing, she was having difficulty doing this with her dominant hand in a splint. Nursing staff and Occupational Therapy worked with her to achieve the ability to straight cath herself with her left hand as well as to dress with her left hand. Vital signs on day of discharge, 08/04/18: Temperature 98.8, pulse rate 87, respiratory rate 16, oxygen saturation 96%, blood pressure 156/79. The patient was deemed to be medically and orthopedically stable for discharge back to [facility]. She will have help for dressing. She is able to straight cath herself. She confirms that she can do this without difficulty. Exam on the day of discharge: Right arm is in a splint. Clean, dry, and intact fingers. Edema and ecchymosis of the hand are almost entirely resolved. Capillary refill less than 2 seconds distally. Sensation intact distally to light touch. Throughout her stay, she has had some decreased sensation in the 5th digit which is not affecting her function and is not worsening. She is moving all of her digits well. DISCHARGE MEDICATIONS: 1. Klonopin 1 tab 0.5 mg p.o. b.i.d. 2. Lexapro 10 mg p.o. q.a.m. 3. Aspirin 325 mg p.o. q.a.m. 4. Atorvastatin 10 mg p.o. at bedtime. 5. Senna 1 tab p.o. at bedtime. 6. Acetaminophen 500 mg p.o. t.i.d. 7. PreserVision AREDS softgel 1 each p.o. b.i.d. 8. Pantoprazole 20 mg p.o. q.a.m. 9. Meclizine 12.5 mg p.o. t.i.d. p.r.n. 10. Vitamin D3 2000 units p.o. q.a.m. 11. Artificial tears 1 drop both eyes b.i.d. 12. Losartan 100 mg p.o. q.a.m. 13. Amlodipine 5 mg p.o. q.a.m. 14. Docusate 100 mg p.o. b.i.d. DISCHARGE PLAN: The patient will be discharged to home at [facility]. She will be nonweightbearing on her right arm. Pain control with Tylenol Extra Strength 500 mg 2 tabs every 8 hours as needed for pain, maximum daily dose of Tylenol is 3000 mg from all sources. Keep the splint clean, dry, and intact until postop visit. Ice and elevate the arm, wiggle exposed fingers. Follow up with Dr. Mendenhall in 1 week, sooner with any concerns. Please call our office to make an appointment, again sooner with any concerns. No need for any prescriptions at this time. Tylenol and docusate are available [id number] at [facility] or any other pharmacy should she need them. Dosing instruction is given. MONROE BARNES [id number]/[facility] #: [id number] SHANTELLE
== END 2018-08-04 10:33 | disposition home health service (06) | DRG 494 ==
LOC: OR 14:17 → SSU 21:48
PROVIDERS: ADMIT Orthopaedic Surgery Hand Surgery; ATTEND Orthopaedic Surgery Hand Surgery
PROC: 0PSF04Z Reposition Right Humeral Shaft with Internal Fixation Device, Open Approach (ICD-10-PCS; principal; 2018-07-24 15:45)
DX: S42.401A Unspecified fracture of lower end of right humerus, initial encounter for closed fracture (principal); I10 Essential (primary) hypertension; J45.909 Unspecified asthma, uncomplicated; E78.5 Hyperlipidemia, unspecified; F32.9 Major depressive disorder, single episode, unspecified; F41.9 Anxiety disorder, unspecified; S42.411A Displaced simple supracondylar fracture without intercondylar fracture of right humerus, initial encounter for closed fracture; G89.29 Other chronic pain; M54.2 Cervicalgia; M16.10 Unilateral primary osteoarthritis, unspecified hip; I48.91 Unspecified atrial fibrillation; K21.9 Gastro-esophageal reflux disease without esophagitis; N31.9 Neuromuscular dysfunction of bladder, unspecified; K59.00 Constipation, unspecified; W17.89XA Other fall from one level to another, initial encounter; Z82.49 Family history of ischemic heart disease and other diseases of the circulatory system; Y92.9 Unspecified place or not applicable; Z86.73 Personal history of transient ischemic attack (TIA), and cerebral infarction without residual deficits; Z90.11 Acquired absence of right breast and nipple; Z85.3 Personal history of malignant neoplasm of breast; Z91.040 Latex allergy status; Z88.0 Allergy status to penicillin; Z88.8 Allergy status to other drugs, medicaments and biological substances; Z91.048 Other nonmedicinal substance allergy status; Z79.82 Long term (current) use of aspirin
CPT/HCPCS: 36415; 76001; 80048; 85014; 85018; 85049; 87641; A9270-GY; C1713; G8978-GP-CM; G8979-GP-CJ; G8981-GP-CK; G8987-GO-CJ; G8987-GO-CK; G8988-GO-CI; J1650; J2250; J2270; J2704; J3010; J3370; J3490; J8540

== ENCOUNTER 2018-08-08 13:20 | Emergency (ER) | payer MEDICARE ==
--- OUTSIDE RECORDS SUMMARY | 2018-08-08 13:27 | XMS REPORT | Continuity of Care Document ---
:1935 External Reference #:[id number] Author Name Rosetta Myles Care Team Providers Name Role Phone Jenny Barrios MD Primary Care Physician Unavailable Payers Type Date Identification Numbers Payment Provider Subscriber Policy Number: [id number] [facility] (Medicare) Diana Thomas PayID: [id number] [facility] [address] [place] [id number] Advance Directives Description No Information Available Problems Date Description Provider Status Onset: 03/09/2014 Atrial fibrillation Adrián Velez M.D., Active FACC, FASNC Onset: 11/29/2014 Essential hypertension Ligia Shukla M.D. Active Onset: 11/29/2014 Hypercholesterolemia Ligia Shukla M.D. Active Onset: 11/29/2014 Small vessel cerebrovascular disease Ligia Shukla M.D. Active Onset: 08/15/2015 Localized, primary osteoarthritis of Nicole Leung M.D. Active the pelvic region and thigh Onset: 10/07/2015 Localized, primary osteoarthritis Nicole Leung M.D. Active Family History Date Family Member(s) Problem(s) Comments General Father [place] in 80s Social History Type Date Description Comments Sex Unknown ETOH Use Denies alcohol use Tobacco Use Start: Unknown Patient has never smoked Smoking Status Reviewed: 04/03/17 Patient has never smoked Allergies, Adverse Reactions, Alerts Date Description Reaction Status Severity Comments 02/15/2014 Lisinopril Active 02/15/2014 Penicillins Active Medications Medication Date Status Form Strength Qnty SIG Indications Ordering Provider Klonopin Active Tablets 0.5mg 60tab 1 tablet po Unknown /0000 s bid Vitamin D3 High Active Capsules 1000Unit 30cap 2 by mouth Unknown Potency /0000 s every day Escitalopram Active Tablets 10mg 1 by mouth Unknown Oxalate /0000 every day Aspirin Ec Active Tablets DR 325mg 1 by mouth Unknown /0000 every day Milk Of Active Suspension 7.75% 2 Tbsp. oral Unknown Magnesia /0000 every day as needed for constipation prn Losartan Active Tablets 150mg 1 1/2 po Jander, Potassium /0000 daily MD Jenny Acetaminophen Active Capsules 500mg 1 by mouth Unknown /0000 three times daily Amlodipine Active Tablets 5mg 1 by mouth Unknown Besylate / every day Atorvastatin Active Tablets 10mg 1 by mouth Unknown Calcium / every day Senna-Plus Active Tablets 8.6-50mg 1 tab by Unknown /0000 mouth every at bedtime Miralax Active Powder 3350NF 17 gm every Unknown /0000 day mixed w/ 8 oz water/juice Pantoprazole Active Tablets DR 40mg take 1 by Unknown Sodium /0000 mouth on Mon, Wd, and Fri Probiotic Active Capsules 1 by mouth Unknown /0000 bid Psyllium Active Capsules 400mg 1 by mouth Unknown /0000 tid Meclizine HCL Active Tablets 12.5mg 1 tab po tid Unknown /0000 prn Anti-Diarrheal Active Tablets 2mg 1 tab q6hrs Unknown /0000 prn for loose stools Preservision Active Capsules 1 by mouth Unknown Areds /0000 twice a day Akwa Tears Active Solution 0.1%-0.3% 2 drops in Unknown /0000 both eyes twice a day Mupirocin Hx Ointment 2% 22gm apply to Unknown /0000 skin lesions - twice daily 02/16 Klor-Con M10 Hx Tablets ER 10Meq 90tab 1 PO qd Unknown / s - 12/03 Chlorthalidone Hx Tablets 25mg 45tab 1/2 by mouth Unknown /0000 s twice day - 07/26 Losartan Hx Tablets 25mg 90tab 1 tab bid Unknown Potassium /0000 s - 11/28 Multivitamins 0000 Hx Capsules 30cap daily Unknown /0000 s - 12/19 Probiotic / Hx daily Unknown /0000 - 02/16 Vitamin K Hx Capsules 100mcg 1 1/2 tablet Unknown /0000 daily - 02/16 Prevagen 00 Hx Capsules 10mg daily Unknown /0000 - 07/26 Magnesium 00 Hx Tablets 210mg 1 po daily Unknown Lactate /0000 - 08/14 Vitamin B 00 Hx Tablets 1 by mouth Unknown Complex /0000 every day - 12/19 Leo III Hx Capsules 1000mg 90cap 1 by mouth Unknown Epa+Dha /0000 s every day - 12/19 Barley Max Hx Powder drink Unknown / - 07/26 Lecithin Hx Capsules 1 tbsp.po Unknown /0000 daily - 07/26 Ashwaganda Hx Capsule 470mg 1 po daily Unknown Extract / - 12/19 Coconut Oil Hx Oil 1 Tbsp po Unknown / daily - 07/26 Sahra Hx Capsule 1 cap po Unknown /0000 daily - 07/26 Stool Softener Hx Capsules 100mg 1 by mouth Unknown /0000 daily prn - 12/19 Tramadol HCL 00 Hx Tablets 50mg 1-2 tablets Unknown /0000 every 6 - hours as 12/03 Gabapentin 00 Hx Capsules 100mg 1 by mouth Unknown /0000 bid - 12/04 Clopidogrel Hx Tablets 75mg 1 by mouth Unknown Bisulfate /0000 every day - 04/03 Medications Administered in Office Medication Date Status Form Strength Qnty SIG Indications Ordering Provider Depomedrol Administered Injection Nicole 40MG 016 Vidal Leung Inj, Administered Injection Adrián Reyes Regadenoson, 014 Agust[place], 0.1 MG MFrancisDFrancis, FACC, FASNC Inj, Administered Injection Daniela Regadenoson, 014 [place], 0.1 MG M.D. Technetium TC Administered Injection Adrián Reyes 99M 014 Kirsten Velez M.D., FACKenji, Per Unit Dose FASNC Up To 40 Millicuries Technetium TC Administered Injection Daniela 99M Kirsten William M.D. Per Unit Dose Up To 40 Millicuries Immunizations Description No Information Available Vital Signs Date Vital Result Comment 04/03/2017 1:31pm Height 62 inches 5'2" Weight 134.00 lb Heart Rate 74 /min BP Systolic Sitting 118 mmHg BP Diastolic Sitting 70 mmHg Respiratory Rate 14 /min BMI (Body Mass Index) 24.5 kg/m2 12/05/2016 1:39pm Height 62 inches 5'2" Weight 137.00 lb Heart Rate 60 /min BP Systolic Sitting 138 mmHg BP Diastolic Sitting 76 mmHg Respiratory Rate 14 /min BMI (Body Mass Index) 25.1 kg/m2 12/05/2015 2:14pm Height 62 inches 5'2" Weight 119.00 lb Heart Rate 60 /min BP Systolic Sitting 118 mmHg BP Diastolic Sitting 62 mmHg Respiratory Rate 14 /min BMI (Body Mass Index) 21.8 kg/m2 10/07/2015 1:45pm Height 62 inches 5'2" Weight 113.00 lb Pain Level 5 BMI (Body Mass Index) 20.7 kg/m2 08/15/2015 11:45am Height 62 inches 5'2" Weight 113.00 lb Heart Rate 76 /min BP Systolic Sitting 138 mmHg BP Diastolic Sitting 78 mmHg Respiratory Rate 16 /min BMI (Body Mass Index) 20.7 kg/m2 12/20/2014 9:28am Height 62 inches 5'2" Weight 122.00 lb Heart Rate 68 /min BP Systolic Sitting 138 mmHg BP Diastolic Sitting 76 mmHg Respiratory Rate 16 /min BMI (Body Mass Index) 22.3 kg/m2 11/29/2014 10:19am Height 62 inches 5'2" Weight 120.00 lb Heart Rate 68 /min BP Systolic Sitting 152 mmHg BP Diastolic Sitting 86 mmHg Respiratory Rate 16 /min BMI (Body Mass Index) 21.9 kg/m2 03/09/2014 1:40pm Heart Rate 72 /min BP Systolic Sitting 138 mmHg BP Diastolic Sitting 70 mmHg Respiratory Rate 16 /min 02/16/2014 1:27pm Height 63 inches 5'3" Weight 127.00 lb Heart Rate 72 /min BP Systolic Sitting 118 mmHg left BP Diastolic Sitting 72 mmHg left BP Systolic Standing 140 mmHg standing BP Diastolic Standing 80 mmHg standing Respiratory Rate 16 /min BMI (Body Mass Index) 22.5 kg/m2 Results Test Date Facility Test Result H/L Range Note Laboratory test 02/19/2017 [facility] Magnesium 2.2 mg/dL N 1.9-2.7 1, [address] [place] [address] [phone] Basic Metabolic 02/28/2016 [facility] Sodium 139 mmol/L N 133- 145 [address] [place] [address] [phone] Potassium 4.1 mmol/L N 3.5-5.0 Chloride 106 mmol/L N 101-111 Co2 Carbon Dioxide 27 mmol/L N 22-32 Anion Gap 6 mmol/L N 2-11 Glucose 101 mg/dL High 70-100 Blood Urea Nitrogen 16 mg/dL N 6-24 Creatinine 0.85 mg/dL N 0.51-0.95 BUN/Creatinine Ratio 18.8 N 8-20 Calcium 9.6 mg/dL N 8.6-10.3 Egfr Non- 64.7 N >60 Egfr 83.2 N >60 4 Vitamin D, 25 Hydroxy 11/29/2014 25-Hydroxy Vitamin D2 <4.0 ng/mL N 25-Hydroxy Vitamin D3 65 ng/mL N 25-Hydroxy Vitamin D Total 65 ng/mL N 5 1 [id number] 2 [id number] 3 [id number] 4 Because ethnic data is not always readily available, this report includes an eGFR for both -Americans and non- Americans. The National Kidney Disease Education Program (NKDEP) does not endorse the use of the MDRD equation for patients that are not between the ages of 18 and 70, are , have extremes of body size, muscle mass, or nutritional status, or are non- or non-. According to the National Kidney Foundation, irrespective of diagnosis, the stage of the disease is based on the level of kidney function: Stage Description GFR(mL/min/1.73 m(2)) 1 Kidney damage with normal or decreased GFR 90 2 Kidney damage with mild decrease in GFR 60-89 3 Moderate decrease in GFR 30-59 4 Severe decrease in GFR 15-29 5 Kidney failure <15 (or dialysis) 5 Interpretation: 51-80 ng/mL (increased risk of hypercalciuria) REFERENCE VALUE 25-HYDROXY D TOTAL (D2+D3) Optimum levels in the healthy population are 20-50, patients with bone disease may benefit from higher levels within this range. Test Performed by: [facility] - [address] [address] Pcat Instructor: Orion Claudio II, M.D., Ph.D. Procedures Date Code Description Status 09/16/2016 76867 ECHO Transthorasic Realtime 2D W Doppler & Color Flow Hosp Completed 10/07/2015 62715 Inject/Drain Joint/Bursa Major W/O US Completed 07/09/2015 81383 EKG, Interpretation Only Completed 05/29/2015 01359 ECHO Transthorasic Realtime 2D W Doppler & Color Flow Hosp Completed 05/29/2015 39303 EKG, Interpretation Only Completed 02/23/2014 05553 Stress Test Completed 02/23/2014 41152 Myocardial Perfusion Imaging Tomographic (Spect) Multiple Completed Studies 02/23/2014 95224 Myocardial Perfusion Imaging Tomographic (Spect) Multiple Completed Studies 02/19/2014 13930 ECHO Transthoracic, Real-Time 2D With Doppler And Color Completed Flow 02/16/2014 33830 EKG Tracing & Interpretation Completed 12/30/2013 93668 Holter Monitor Review (24 hr)dr review & interp only Completed 09/27/2003 93856 Color Doppler Completed 09/27/2003 68396 Pulse Doppler & Continuous Wave Completed 09/27/2003 38401 Echocardiogram Completed Encounters Type Date Location Provider Dx Diagnosis Office Visit 04/03/2017 [place] Salvatore Shukla, R26.81 Unsteadiness on 1:30p [facility] feet Z86.73 Prsnl hx of TIA (TIA), and cereb infrc w/o resid deficits Office Visit 12/05/2016 1:30p [place] Sh[place], I10 Essential (primary) [facility] hypertension I48.91 Unspecified atrial fibrillation Z86.73 Prsnl hx of TIA (TIA), and cereb infrc w/o resid deficits Office Visit 09/17/2016 2:34p [place] Cj Encarnacion I63.9 Cerebral Assoc,barbara Hamm M.D. infarction, Hospitalists unspecified I48.0 Paroxysmal atrial fibrillation I10 Essential (primary) hypertension Z86.73 Prsnl hx of TIA (TIA), and cereb infrc w/o resid deficits Office Visit 09/16/2016 [facility] Hipolito Rao63.9 Cerebral 4:55p Clinic V[facility] Grimaldo infarction, unspecified I10 Essential (primary) hypertension Office Visit 09/16/2016 2:34p [facility] I63.9 Cerebral Assoc,barbara Desouza M.D. infarction, Hospitalists unspecified I48.0 Paroxysmal atrial fibrillation I10 Essential (primary) hypertension Z86.73 Prsnl hx of TIA (TIA), and cereb infrc w/o resid deficits Office Visit 09/15/2016 [facility]hospitalist Hipolito Rao63.9 Cerebral 4:53p Clinic [place] Grimaldo infarction, unspecified I10 Essential (primary) hypertension Office 09/15/2016 [facility] I63.9 Cerebral Visit 2:33p Assoc,pc Melva, PA infarction, Hospitalists unspecified I48.0 Paroxysmal atrial fibrillation I10 Essential (primary) hypertension Z86.73 Prsnl hx of TIA (TIA), and cereb infrc w/o resid deficits Office Visit 12/05/2015 2:15p [place] [facility] Ligia Shukla, 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 M.D. knee M46.1 Sacroiliitis, not elsewhere classified M17.11 Unilateral primary osteoarthritis, right knee M16.11 Unilateral primary osteoarthritis, right hip Office Visit 08/15/2015 Orthopedic Nicole M17.11 Unilateral primary 2:00p Services Of [place] Leung osteoarthritis, right C.M.A. 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 [place] Doradatimothy R40.4 Transient 1:04p barbara Mazariegos II, M.D. alteration of Hospitalists awareness N30.00 Acute cystitis without hematuria I10 Essential (primary) hypertension Office Visit 05/29/2015 [facility]hospitalist Ligia G45.9 Transient 11:22a [place] Shukla M.D. cerebral ischemic attack, unspecified Office Visit 05/29/2015 [facility] Marc Freitas, G45.9 Transient 1:59p barbara Mazariegos M.D. cerebral ischemic attack, unspecified I10 Essential (primary) hypertension F41.9 Anxiety disorder, unspecified Office Visit 05/28/2015 [facility]hospital[facility] Ligia G45.9 Transient 10:59a Mono Shukla M.D. cerebral ischemic attack, unspecified I10 Essential (primary) hypertension E78.0 Pure hypercholesterolemia Office Visit 05/27/2015 [facility] G45.9 Transient 1:58p barbara Mazariegos II, M.D. cerebral Hospitalists ischemic attack, unspecified I10 Essential (primary) hypertension F41.9 Anxiety disorder, unspecified Office Visit 04/07/2015 [facility] 590.80 Pyelonephritis 1:08p barbara Mazariegos M.D. Unspec Hospitalists 038.9 Septicemia Unspec 288.60 Leukocytosis, Unspecified Office Visit 04/06/2015 [facility] 590.80 Pyelonephritis 1:08p barbara Mazariegos M.D. Unspec Hospitalists 038.9 Septicemia Unspec 288.60 Leukocytosis, Unspecified Office Visit 04/05/2015 [facility] 590.80 Pyelonephritis 1:07p barbara Mazariegos M.D. Unspec Hospitalists 288.60 Leukocytosis, Unspecified 038.9 Septicemia Unspec Office Visit 04/04/2015 [facility] 590.80 Pyelonephritis 1:07p Assoc,barbara Hamm M.D. Unspec Hospitalists 288.60 Leukocytosis, Unspecified 038.9 Septicemia Unspec [facility] Pyelonephritis 1:07p Assoc,barbara Strange M.D. Unspec Hospitalists 038.9 Septicemia Unspec 288.60 Leukocytosis, Unspecified Office Visit 04/02/2015 1:06p [facility] Jia 599.0 UTI Urinary Assoc,barbara Strange M.D. Tract Infection Hospitalists Site Not Spec 038.9 Septicemia Unspec 401.9 Hypertension Unspec Office Visit 04/01/2015 1:05p [facility] 584.9 Acute Kidney Assoc,barbara Strange M.D. Failure, Hospitalists Unspecified 038.9 Septicemia Unspec 599.0 UTI Urinary Tract Infection Site Not Spec 401.9 Hypertension Unspec Office Visit 04/01/2015 11:38a [facility] Gaudencio Dias 038.8 Septicemias Other Infectious Vidal Brown Spec Diseases 995.91 Sepsis 590.80 Pyelonephritis Unspec 401.1 Hypertension Benign Office Visit 03/31/2015 1:05p [facility] Jia 599.0 UTI Urinary Assoc,barbara Strange M.D. Tract Infection Hospitalists Site Not Spec 584.9 Acute Kidney Failure, Unspecified 038.9 Septicemia Unspec Office Visit 03/30/2015 1:05p [facility] 599.0 UTI Urinary Assoc,barbara Strange M.D. Tract Infection Hospitalists Site Not Spec 584.9 Acute Kidney Failure, Unspecified 038.9 Septicemia Unspec Office Visit 03/29/2015 1:04p [facility] 599.0 UTI Urinary Assoc,barbara Strange M.D. Tract Infection Hospitalists Site Not Spec 584.9 Acute Kidney Failure, Unspecified 038.9 Septicemia Unspec 401.9 Hypertension Unspec Office Visit 03/28/2015 1:03p [facility] Tiff Rees, 599.0 UTI Urinary Assoc,pc N.PFrancis Tract Infection Hospitalists Site Not Spec 584.9 Acute Kidney Failure, Unspecified 780.97 Altered Mental Status 401.9 Hypertension Unspec Office Visit 12/20/2014 9:30a [place] [facility] Ligia Shukla, 799.59 Other Signs And Services Of [facility] Vidal Symptoms Involving Cognition 437.1 Cerebrovascular Disease Ischemic Generalized Other 781.2 Gait Abnormality Office Visit 11/29/2014 [place] Ligia Ruizedda, 437.1 Cerebrovascular 10:00a Neurologic MKlarissa Disease Ischemic Services [facility] Generalized Other 780.79 Malaise And Fatigue Other 780.93 Memory Loss Office Visit 03/09/2014 1:15p [place] [facility] Adrián Reyes 427.31 Atrial Vidal Velez, Fibrillation [facility] Office Visit 02/16/2014 1:15p [place] [facility] Adrián Reyes 427.9 Cardiac Vidal Velez, Dysrhythmia Unspec [facility] 786.09 Dyspnea & Respiratory Abnormalities Other 794.31 Electrocardiogram (ECG) (EKG) Abnormal Plan of Treatment No Information Available
--- OUTSIDE RECORDS SUMMARY | 2018-08-08 13:27 | XMS REPORT | Continuity of Care Document ---
:1935 External Reference #:[id number] Author Name RosaKamran qureshi Care Team Providers Name Role Phone Jenny Barrios MD Primary Care Physician Unavailable Payers Type Date Identification Numbers Payment Provider Subscriber Policy Number: [id number] [facility] (Medicare) Diana Thomas PayID: [id number] [address] Advance Directives Description No Information Available Problems Date Description Provider Status Onset: 03/09/2014 Atrial fibrillation Adrián Velez M.D., Active FAC, FASNC Onset: 11/29/2014 Essential hypertension Ligia Shukla M.D. Active Onset: 11/29/2014 Hypercholesterolemia Ligia Shukla M.D. Active Onset: 11/29/2014 Small vessel cerebrovascular disease Ligia Shukla M.D. Active Onset: 08/15/2015 Localized, primary osteoarthritis of Nicole Leung M.D. Active the pelvic region and thigh Onset: 10/07/2015 Localized, primary osteoarthritis Nicole Leung M.D. Active Family History Date Family Member(s) Problem(s) Comments General Father AR in 80s Social History Type Date Description Comments Sex Unknown Lives With Alone Lives With [place] Occupation Retired ETOH Use Denies alcohol use Tobacco Use Start: Unknown Patient has never smoked Smoking Status Reviewed: 07/18/18 Patient has never smoked Exercise Type/Frequency Exercises sporadically Allergies, Adverse Reactions, Alerts Date Description Reaction Status Severity Comments 02/15/2014 Lisinopril Active 02/15/2014 Penicillins Active 07/18/2018 Adhesive Active 07/18/2018 Latex Active Medications Medication Date Status Form Strength [...] Tablets 5mg 1 by mouth Unknown Besylate /0000 every day Atorvastatin Active Tablets 10mg 1 by mouth Unknown Calcium /0000 every day Senna-Plus Active Tablets 8.6-50mg 1 [...] ER 10Meq 90tab 1 PO qd Unknown /0000 s - 12/03 Chlorthalidone Hx Tablets 25mg 45tab 1/2 by mouth Unknown /0000 s twice day - 07/26 Losartan 00/00 Hx Tablets 25mg 90tab 1 tab bid Unknown Potassium /0000 s - 11/28 Multivitamins 00/00 Hx Capsules 30cap daily Unknown /0000 s - 12/19 Probiotic 00/ Hx daily Unknown / - 02/16 Vitamin K 00/ Hx Capsules 100mcg 1 1/2 tablet Unknown /0000 daily - 02/16 Prevagen Hx Capsules 10mg daily Unknown / - 07/26 Magnesium 00 Hx Tablets 210mg 1 po daily Unknown Lactate /0000 - 08/14 Vitamin B Hx Tablets 1 by mouth Unknown Complex /0000 every day - 12/19 Waverly III Hx Capsules 1000mg 90cap 1 by mouth Unknown Epa+Dha /0000 s every day - 12/19 Barley Max Hx Powder drink Unknown / - 07/26 Lecithin Hx Capsules 1 tbsp.po Unknown /0000 daily - 07/26 Ashwaganda Hx Capsule 470mg 1 po daily Unknown Extract /0000 - 12/19 Coconut Oil 00 Hx Oil 1 Tbsp po Unknown /0000 daily - 07/26 Sahra Hx Capsule 1 cap po Unknown /0000 daily - 07/26 Stool Softener 00 Hx Capsules 100mg 1 by mouth Unknown /0000 daily prn - 12/19 Tramadol HCL 00 Hx Tablets 50mg 1-2 tablets Unknown /0000 every 6 - hours as 12/03 Gabapentin 0000 Hx Capsules 100mg 1 by mouth Unknown /0000 bid - 12/04 Clopidogrel 00 Hx Tablets 75mg 1 by mouth Unknown Bisulfate /0000 every day - 04/03 Medications Administered in Office Medication Date Status Form Strength Qnty SIG Indications Ordering Provider Depomedrol Administered Injection Nicole 40MG 016 Vidal Leung Inj, Administered Injection Adrián Reyes Regadenoson, 014 Velez, 0.1 MG M.D., FACC, FASNC Inj, Administered Injection Daniela Regadenoson, 014 Malick, 0.1 MG M.D. Technetium TC Administered Injection Adrián Reyes 99M 014 Velez, Tetrofosmin, M.D., LOCATED WITHIN [facility], Per Unit Dose FASNC Up To 40 Millicuries Technetium TC Administered Injection Daniela 99M 014 Kirsten Teresa M.D. Per Unit Dose Up To 40 Millicuries Immunizations Description No Information Available Vital Signs Date Vital Result Comment 07/18/2018 11:10am Height 62 inches 5'2" Weight 127.00 lb Heart Rate 72 /min BP Systolic 124 mmHg BP Diastolic 78 mmHg Body Temperature 99.7 F Pain Level 9 BMI (Body Mass Index) 23.2 kg/m2 04/03/2017 1:31pm Height 62 inches 5'2" Weight [...] Result H/L Range Note Laboratory test 02/19/2017 [facility] Magnesium 2.2 mg/dL N 1.9-2.7 1, [address] [place] [address] [phone] Basic Metabolic 02/28/2016 [facility] Sodium 139 mmol/L N 133- 145 [address] [place] [address] [phone] Potassium 4.1 mmol/L N 3.5-5.0 Chloride 106 [...] D Total 65 ng/mL N 5 1 [id number] 2 [id number] 3 [id number] 4 Because ethnic data is not always [...] levels within this range. Test Performed by: [facility] [place] [id number] Bereavement Counselor: Orion Claudio II, M.D., Ph.D. Procedures Date Code Description Status 09/16/2016 91895 ECHO Transthorasic Realtime 2D W Doppler & Color Flow Hosp Completed 10/07/201593893 Inject/Drain Joint/Bursa Major W/O US Completed 07/09/2015 29260 EKG, Interpretation Only Completed 05/29/2015 23281 ECHO Transthorasic Realtime 2D W Doppler & Color Flow Hosp Completed 05/29/2015 44577 EKG, Interpretation Only Completed 02/23/2014 27172 Stress Test Completed 02/23/2014 10925 Myocardial Perfusion Imaging Tomographic (Spect) Multiple Completed Studies 02/23/2014 72656 Myocardial Perfusion Imaging Tomographic (Spect) Multiple Completed Studies 02/19/2014 53315 ECHO Transthoracic, Real-Time 2D With Doppler And Color Completed Flow 02/16/2014 37358 EKG Tracing & Interpretation Completed 12/30/2013 51014 Holter Monitor Review (24 hr)dr review & interp only Completed 09/27/2003 94258 Color Doppler Completed 09/27/2003 65461 Pulse Doppler & Continuous Wave Completed 09/27/2003 50117 Echocardiogram Completed Encounters Type Date Location Provider Dx Diagnosis Office Visit 04/03/2017 [facility] Ligia Shukla, R26.81 Unsteadiness on 1:30p [facility] MKlarissa feet Z86.73 Prsnl hx of TIA (TIA), and cereb infrc w/o resid deficits Office Visit 12/05/2016 1:30p [facility] Ligia Shukla, I10 Essential (primary) [facility] Drake hypertension I48.91 Unspecified atrial fibrillation Z86.73 Prsnl hx of TIA (TIA), and cereb infrc w/o resid deficits Office Visit 09/17/2016 2:34p [facility] Shashank I63.9 Cerebral Assoc,barbara Hamm M.D. infarction, Hospitalists unspecified I48.0 Paroxysmal atrial fibrillation I10 Essential (primary) hypertension Z86.73 Prsnl hx of TIA (TIA), and cereb infrc w/o resid deficits Office Visit 09/16/2016 [facility] Hipolito Zuniga I63.9 Cerebral 4:55p [facility] Grimaldo infarction, unspecified I10 Essential (primary) hypertension Office Visit 09/16/2016 2:34p [facility] Bart I63.9 Cerebral Assoc,barbara Desouza M.D. infarction, Hospitalists unspecified I48.0 Paroxysmal atrial fibrillation I10 Essential (primary) hypertension Z86.73 Prsnl hx of TIA (TIA), and cereb infrc w/o resid deficits Office Visit 09/15/2016 [facility] Hipolito Zuniga I63.9 Cerebral 4:53p Clinic [facility] Grimaldo infarction, unspecified I10 Essential (primary) hypertension Office 09/15/2016 [facility] Nader I63.9 Cerebral Visit 2:33p Assoc,pc [place], [place] infarction, Hospitalists unspecified I48.0 Paroxysmal atrial fibrillation I10 Essential (primary) hypertension Z86.73 Prsnl hx of TIA (TIA), and cereb infrc w/o resid deficits Office Visit 12/05/2015 2:15p [facility] Ligia Shukla, 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 without Hospitalists hematuria R40.4 Transient alteration of awareness I10 Essential (primary) hypertension [facility] 1:04p barbara Mazariegos II, M.D. alteration of Hospitalists awareness N30.00 Acute cystitis without hematuria I10 Essential (primary) hypertension Office Visit 05/29/2015 [facility] Ligia G45.9 Transient 11:22a Mono Shukla M.D. cerebral ischemic attack, unspecified Office Visit 05/29/2015 [facility] Marc Freitas, G45.9 Transient 1:59p barbara Mazariegos M.D. cerebral ischemic attack, unspecified I10 Essential (primary) hypertension F41.9 Anxiety disorder, unspecified Office Visit 05/28/2015 [facility] Ligia G45.9 Transient 10:59a Mono Shukla M.D. cerebral ischemic attack, unspecified I10 Essential (primary) hypertension E78.0 Pure [facility]cholesterolemia [facility].9 Transient 1:58p Assbarbara hu II, M.D. cerebral Hospitalists ischemic attack, unspecified I10 Essential (primary) hypertension F41.9 Anxiety disorder, unspecified Office Visit 04/07/2015 [facility] Delfin 590.80 Pyelonephritis 1:08p Assbarbara hu M.D. Unspec Hospitalists 038.9 Septicemia Unspec 288.60 Leukocytosis, Unspecified Office Visit 04/06/2015 [facility] 590.80 Pyelonephritis 1:08p barbara Mazariegos M.D. Unspec Hospitalists 038.9 Septicemia Unspec 288.60 Leukocytosis, Unspecified Office Visit 04/05/2015 [facility] Delfin 590.80 Pyelonephritis 1:07p barbara Mazariegos M.D. Unspec Hospitalists 288.60 Leukocytosis, Unspecified 038.9 Septicemia Unspec Office Visit 04/04/2015 [facility] Shashank 590.80 Pyelonephritis 1:07p barbara Mazariegos M.D. Unspec Hospitalists 288.60 Leukocytosis, Unspecified 038.9 Septicemia Unspec [facility] Pyelonephritis 1:07p barbara Mazariegos M.D. Unspec Hospitalists 038.9 Septicemia Unspec 288.60 Leukocytosis, Unspecified Office Visit 04/02/2015 1:06p [facility] Jia 599.0 UTI Urinary Assoc,barbara Strange M.D. Tract Infection Hospitalists Site Not Spec 038.9 Septicemia Unspec 401.9 Hypertension Unspec Office Visit 04/01/2015 1:05p [facility] Jia 584.9 Acute Kidney Assoc,barbara Strange M.D. Failure, Hospitalists Unspecified 038.9 Septicemia Unspec 599.0 UTI Urinary Tract Infection Site Not Spec 401.9 Hypertension Unspec [facility] Septicemias Other Infectious Vidal Brown Spec Diseases 995.91 Sepsis 590.80 Pyelonephritis Unspec 401.1 Hypertension Benign Office Visit 03/31/2015 1:05p [facility] Jia 599.0 UTI Urinary Assoc,barbara Strange M.D. Tract Infection Hospitalists Site Not Spec 584.9 Acute Kidney Failure, Unspecified 038.9 Septicemia Unspec Office Visit 03/30/2015 1:05p [facility] Jia 599.0 UTI Urinary Assoc,barbara Strange M.D. Tract Infection Hospitalists Site Not Spec 584.9 Acute Kidney Failure, Unspecified 038.9 Septicemia Unspec Office Visit 03/29/2015 1:04p [facility] Jia 599.0 UTI Urinary Assoc,barbara Strange M.D. Tract Infection Hospitalists Site Not Spec 584.9 Acute Kidney Failure, Unspecified 038.9 Septicemia Unspec 401.9 Hypertension Unspec Office Visit 03/28/2015 1:03p [facility] Tiffjanice Rees, 599.0 UTI Urinary Assoc,pc N.P. Tract Infection Hospitalists Site Not Spec 584.9 Acute Kidney Failure, Unspecified 780.97 Altered Mental Status 401.9 Hypertension Unspec Office Visit 12/20/2014 9:30a [facility] Ligia Shukla, 799.59 Other [facility] Vidal Symptoms Involving Cognition 437.1 Cerebrovascular Disease Ischemic Generalized Other 781.2 Gait Abnormality Office Visit 11/29/2014 [facility] Ligia Shukla, 437.1 Cerebrovascular 10:00a Neurologic Vidal Disease Ischemic [facility] Generalized Other 780.79 Malaise And Fatigue Other 780.93 Memory Loss Office Visit 03/09/2014 1:15p [facility] Adrián Reyes 427.31 Atrial Vidal Velez, Fibrillation LOCATED WITHIN [facility] Office Visit 02/16/2014 1:15p [facility] Adrián Reyes 427.9 Cardiac Vidal Velez, Dysrhythmia Unspec [facility] 786.09 Dyspnea & Respiratory Abnormalities Other 794.31 Electrocardiogram (ECG) (EKG) Abnormal Plan of Treatment Future Appointment(s):07/22/2018 8:15 am - Shashank Mendenhall MD at [facility]
--- OUTSIDE RECORDS SUMMARY | 2018-08-08 13:27 | XMS REPORT | Continuity of Care Document ---
:1935 External Reference #:[id number] Author Name RosaKamran qureshi Care Team Providers Name Role Phone Jenny Barrios MD Primary Care Physician Unavailable Payers Type Date Identification Numbers Payment Provider Subscriber Policy Number: [id number] [facility] (Medicare) Diana Thomas PayID: [id number] [address] Advance Directives Description No Information Available Problems [...] Localized, primary osteoarthritis Nicole Leung M.D. Active Onset: 07/22/2018 Closed fracture of lower end of Shashank Mendenhall MD Active humerus Family History Date Family Member(s) Problem(s) Comments General Father [place] in 80s Social History Type Date Description Comments Sex Unknown Lives With Alone Lives With long[place] Occupation Retired ETOH Use Denies alcohol use Tobacco Use Start: Unknown Patient has never smoked Smoking Status Reviewed: 08/06/18 Patient has never smoked Exercise Type/Frequency Exercises sporadically Allergies, Adverse Reactions, Alerts Date Description Reaction Status Severity Comments 02/15/2014 Lisinopril Active 02/15/2014 Penicillins Active 07/18/2018 Adhesive Active 07/18/2018 Latex Active Medications Medication Date Status Form Strength Qnty SIG Indications Ordering Provider Oxycodone HCL 07/24 Active Tablets 5mg 42tab 1 tabs by s mouth every Mendenhall, 4-6 hours as MD needed Klonopin Active Tablets 0.5mg 60tab 1 tablet po Unknown /0000 s bid Vitamin D3 High Active Capsules 1000Unit 30cap 2 by mouth Unknown Potency /0000 s every day Escitalopram Active Tablets 10mg 1 by mouth Unknown Oxalate / every day Aspirin Ec Active Tablets DR 325mg 1 by mouth Unknown / every day Milk Of Active Suspension 7.75% 2 Tbsp. oral Unknown Magnesia / every day as needed for constipation prn [...] Hx Ointment 2% 22gm apply to Unknown / skin lesions - twice daily 02/16 Klor-Con M10 Hx Tablets ER 10Meq 90tab 1 PO qd Unknown /0000 s - 12/03 Chlorthalidone Hx Tablets 25mg 45tab 1/2 by mouth Unknown /0000 s twice day - 07/26 Losartan 00 Hx Tablets 25mg 90tab 1 tab bid Unknown Potassium /0000 s - 11/28 Multivitamins 00 Hx Capsules 30cap daily Unknown / s - 12/19 Probiotic 00 Hx daily Unknown / - 02/16 Vitamin K Hx Capsules 100mcg 1 1/2 tablet Unknown / daily - 02/16 Prevagen Hx Capsules 10mg daily Unknown /0000 - 07/26 Magnesium 00 Hx Tablets 210mg 1 po daily Unknown Lactate /0000 - 08/14 Vitamin B 00 Hx Tablets 1 by mouth Unknown Complex /0000 every day - 12/19 [place] III Hx Capsules 1000mg 90cap 1 by mouth Unknown Epa+Dha /0000 s every day - 12/19 Barley Max Hx Powder drink Unknown / - 07/26 Lecithin Hx Capsules 1 tbsp.po Unknown /0000 daily - 07/26 Ashwaganda Hx Capsule 470mg 1 po daily Unknown Extract / - 12/19 Coconut Oil 0000 Hx Oil 1 Tbsp po Unknown /0000 daily - 07/26 Sahra 00 Hx Capsule 1 cap po Unknown /0000 daily - 07/26 Stool Softener 00 Hx Capsules 100mg 1 by mouth Unknown /0000 daily prn - 12/19 Tramadol HCL 0000 Hx Tablets 50mg 1-2 tablets Unknown /0000 [...] 016 Vidal Leung Inj, Administered Injection Adrián Conley, 014 Agustin, 0.1 MG M.D., FACC, FASNC Inj, Administered Injection Daniela Regadenoson, 014 Piute, 0.1 MG M.D. Technetium TC Administered Injection Adrián Reyes 99M 014 Betty VelezofosminStacey., FAC, Per Unit Dose FASNC Up To 40 Millicuries Technetium TC Administered Injection Daniela 99M 014 Malick Tetrofosmin M.D. Per Unit Dose Up To 40 Millicuries Immunizations Description No Information Available Vital Signs Date Vital Result Comment 08/06/2018 12:43pm Height 62 inches 5'2" Weight 133.00 lb Respiratory Rate 15 /min Body Temperature 99.4 F Pain Level 6 BMI (Body Mass Index) 24.3 kg/m2 07/22/2018 9:02am Height 62 inches 5'2" Weight 132.25 lb Respiratory Rate 16 /min Pain Level 6 BMI (Body Mass Index) 24.2 kg/m2 07/18/2018 11:10am Height 62 inches 5'2" Weight [...] Result H/L Range Note Laboratory test 02/19/2017 [facility] Magnesium 2.2 mg/dL N 1.9-2.7 1, 2 finding [address] [place] [address] [phone] Basic Metabolic 02/28/2016 [facility] Sodium 139 mmol/L N 133- 145 3 Panel [address] [place] [address] [phone] Potassium 4.1 mmol/L N 3.5-5.0 Chloride 106 [...] D Total 65 ng/mL N 5 1 [id number] 2 [id number] 3 [id number] 4 Because ethnic data is not always [...] levels within this range. Test Performed by: [place] [address] Composition Molder: Orion Claudio II, M.D., Ph.D. Procedures Date Code Description Status 08/06/2018 40737 Long Arm Splint Application Completed 07/24/2018 77997 FX Supra/Transcondyle Humerus Open TX W/O Intercondylar Completed Extension 09/16/2016 43572 ECHO Transthorasic Realtime 2D W Doppler & Color Flow Hosp Completed 10/07/2015 38956 Inject/Drain Joint/Bursa Major W/O US Completed 07/09/2015 20590 EKG, Interpretation Only Completed 05/29/2015 66527 ECHO Transthorasic Realtime 2D W Doppler & Color Flow Hosp Completed 05/29/2015 81951 EKG, Interpretation Only Completed 02/23/2014 01208 Stress Test Completed 02/23/2014 39102 Myocardial Perfusion Imaging Tomographic (Spect) Multiple Completed Studies 02/23/2014 09548 Myocardial Perfusion Imaging Tomographic (Spect) Multiple Completed Studies 02/19/2014 40955 ECHO Transthoracic, Real-Time 2D With Doppler And Color Completed Flow 02/16/2014 04847 EKG Tracing & Interpretation Completed 12/30/2013 77724 Holter Monitor Review (24 hr)dr thelma & interp only Completed 09/27/2003 16142 Color Doppler Completed 09/27/2003 94895 Pulse Doppler & Continuous Wave Completed 09/27/2003 98835 Echocardiogram Completed Encounters Type Date Location Provider Dx Diagnosis Office Visit 07/22/2018 Orthopedic Shashank Mendenhall, S42.401A Unsp fracture of 8:15a Services Of Benita MARTÍNEZ lower end of right humerus, init Office Visit 07/18/2018 Orthopedic Shashank Bui, S42.401A Unsp fracture of 10:15a Services Of Benita Drake lower end of right humerus, init W10.8xxA Fall (on) (from) other stairs and steps, initial encounter Office Visit 04/03/2017 1:30p [place] Ligia Shukla, R26.81 Unsteadiness on Neurologic M.D. feet Services Of [facility] Z86.73 Prsnl hx of TIA (TIA), and cereb infrc w/o resid deficits Office Visit 12/05/2016 1:30p [place] [facility] Ligia Shukla, I10 Essential (primary) Services Of Obdulio Drake hypertension I48.91 Unspecified atrial fibrillation Z86.73 Prsnl hx of TIA (TIA), and cereb infrc w/o resid deficits Office Visit 09/17/2016 2:34p [facility] Shashank I63.9 Cerebral Assoc,barbara Hamm M.D. infarction, Hospitalists unspecified I48.0 Paroxysmal atrial fibrillation I10 Essential (primary) hypertension Z86.73 Prsnl hx of TIA (TIA), and cereb infrc w/o resid deficits Office Visit 09/16/2016 Neurohospitalist Hipolito Zuniga I63.9 Cerebral 4:55p Mono Grimaldo M.D. infarction, unspecified I10 Essential (primary) hypertension Office Visit 09/16/2016 2:34p [facility] Bart I63.9 Cerebral Assoc,barbara Desouza M.D. infarction, Hospitalists unspecified I48.0 Paroxysmal atrial fibrillation I10 Essential (primary) hypertension Z86.73 Prsnl hx of TIA (TIA), and cereb infrc w/o resid deficits Office Visit 09/15/2016 [facility]hospitalist Hipolito Zuniga I63.9 Cerebral 4:53p Clinic Vidal Grimaldo infarction, unspecified I10 Essential (primary) hypertension Office 09/15/2016 [facility] Nader I63.9 Cerebral Visit 2:33p Assoc,MONROE Rodriguez infarction, Hospitalists unspecified I48.0 Paroxysmal atrial fibrillation I10 Essential (primary) hypertension Z86.73 Prsnl hx of TIA (TIA), and cereb infrc w/o resid deficits Office Visit 12/05/2015 2:15p [place] [facility] Ligia Shukla, 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 MFrancisDFrancis knee M46.1 Sacroiliitis, not elsewhere classified M17.11 Unilateral primary osteoarthritis, right knee M16.11 Unilateral primary osteoarthritis, right hip Office Visit 08/15/2015 Orthopedic Nicole M17.11 Unilateral primary 2:00p Services Of Vidal Leung osteoarthritis, right C.M.A. 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 without Hospitalists hematuria R40.4 Transient alteration of awareness I10 Essential (primary) hypertension Office Visit 07/09/2015 [facility] Markus Wright R40.4 Transient 1:04p Assoc,barbara COOLEY M.D. alteration of Hospitalists awareness N30.00 Acute cystitis without hematuria I10 Essential (primary) hypertension Office Visit 05/29/2015 1:59p [facility] Marc Freitas, G45.9 Transient cerebral Assocbarbara M.D. ischemic attack, Hospitalists unspecified I10 Essential (primary) hypertension F41.9 Anxiety disorder, unspecified Office Visit 05/29/2015 Neurohospitalist Ligia G45.9 Transient 11:22a Clinic V[place] Shukla cerebral ischemic attack, unspecified Office Visit 05/28/2015 [facility]hospitalist Ligia G45.9 Transient 10:59a Clinic [place] Shukla cerebral ischemic attack, unspecified I10 Essential (primary) hypertension E78.0 Pure hypercholesterolemia Office Visit 05/27/2015 [facility] Markus Wright G45.9 Transient 1:58p Assocbarbara II, M.D. cerebral Hospitalists ischemic attack, unspecified I10 Essential (primary) hypertension F41.9 Anxiety disorder, unspecified Office Visit 04/07/2015 [facility] 590.80 Pyelonephritis 1:08p Assocbarbara M.D. Unspec Hospitalists 038.9 Septicemia Unspec 288.60 Leukocytosis, Unspecified Office Visit 04/06/2015 [facility] 590.80 Pyelonephritis 1:08p Assbarbara hu M.D. Unspec Hospitalists 038.9 Septicemia Unspec 288.60 Leukocytosis, Unspecified Office Visit 04/05/2015 [facility] 590.80 Pyelonephritis 1:07p barbara Mazariegos M.D. Unspec Hospitalists 288.60 Leukocytosis, Unspecified 038.9 Septicemia Unspec Office Visit 04/04/2015 [facility] 590.80 Pyelonephritis 1:07p Assocbarbara M.D. Unspec Hospitalists 288.60 Leukocytosis, Unspecified 038.9 Septicemia Unspec Office Visit 04/03/2015 [facility] 590.80 Pyelonephritis 1:07p Assocbarbara M.D. Unspec Hospitalists 038.9 Septicemia Unspec 288.60 Leukocytosis, Unspecified Office Visit 04/02/2015 1:06p [facility] Jia 599.0 UTI Urinary Assocbarbara M.D. Tract Infection Hospitalists Site Not Spec 038.9 Septicemia Unspec 401.9 Hypertension Unspec Office Visit 04/01/2015 11:38a [facility] Majo Dias 038.8 Septicemias Other Infectious Vidal Brown Spec Diseases 995.91 Sepsis 590.80 Pyelonephritis Unspec 401.1 Hypertension Benign Office Visit 04/01/2015 1:05p [facility] 584.9 Acute Kidney Assoc,barbara Strange M.D. Failure, Hospitalists Unspecified 038.9 Septicemia Unspec 599.0 UTI Urinary Tract Infection Site Not Spec 401.9 Hypertension Unspec Office Visit 03/31/2015 1:05p [facility] 599.0 UTI Urinary Assoc,barbara Strange M.D. Tract Infection Hospitalists Site Not Spec 584.9 Acute Kidney Failure, Unspecified 038.9 Septicemia Unspec Office Visit 03/30/2015 1:05p [facility] 599.0 UTI Urinary Assoc,barbara Strange M.D. Tract Infection Hospitalists Site Not Spec 584.9 Acute Kidney Failure, Unspecified 038.9 Septicemia Unspec Office Visit 03/29/2015 1:04p [facility] 599.0 UTI Urinary Assoc,barbara Strange M.D. Tract Infection Hospitalists Site Not Spec 584.9 Acute Kidney Failure, Unspecified 038.9 Septicemia Unspec 401.9 Hypertension Unspec Office Visit 03/28/2015 1:03p [facility] Tiff Cabrera, 599.0 UTI Urinary Assoc,pc N.PFrancis Tract Infection Hospitalists Site Not Spec 584.9 Acute Kidney Failure, Unspecified 780.97 Altered Mental Status 401.9 Hypertension Unspec Office Visit 12/20/2014 9:30a [place] [facility] Ligia Shukla, 799.59 Other Signs And Services Of [facility] Vidal Symptoms Involving Cognition 437.1 Cerebrovascular Disease Ischemic Generalized Other 781.2 Gait Abnormality Office Visit 11/29/2014 [place] Ligia Shukla, 437.1 Cerebrovascular 10:00a Neurologic MKlarissa Disease Ischemic Services Of [facility] Generalized Other 780.79 Malaise And Fatigue Other 780.93 Memory Loss Office Visit 03/09/2014 1:15p [place] [facility] Adrián Eric 427.31 Atrial Vidal Velez, Fibrillation FAC, [facility] Office Visit 02/16/2014 1:15p [place] [facility] Adrián Reyes 427.9 Cardiac Vidal Velez, Dysrhythmia Unspec FAC, [facility] 786.09 Dyspnea & Respiratory Abnormalities Other 794.31 Electrocardiogram (ECG) (EKG) Abnormal Plan of Treatment 08/06/2018 - Shashank Mendenhall, MDS42.401D Unspecified fracture of lower end of right humerus, subsequeFollow up:Follow up: 1 week
--- OUTSIDE RECORDS SUMMARY | 2018-08-08 13:27 | XMS REPORT | Continuity of Care Document ---
:1935 External Reference #:[id number] Author Name RosaKamran qureshi Care Team Providers Name Role Phone Jenny Barrios MD Primary Care Physician Unavailable Payers Type Date Identification Numbers Payment Provider Subscriber Policy Number: [id number] [facility] (Medicare) Diana Thomas PayID: [id number] [address] Advance Directives Description No Information Available Problems [...] Date Family Member(s) Problem(s) Comments General Father [place] in 80s Social History Type Date Description Comments Sex Unknown Lives With Alone Lives With [place] Occupation Retired ETOH Use Denies alcohol use Tobacco Use Start: Unknown Patient has never smoked Smoking Status Reviewed: 07/22/18 Patient has never smoked Exercise Type/Frequency Exercises [...] Losartan Active Tablets 150mg 1 1/2 po Sophie, Potassium /0000 daily MD Jenny Acetaminophen Active [...] daily Unknown /0000 s - 12/19 Probiotic 00 Hx daily Unknown /0000 - 02/16 Vitamin K 00 Hx Capsules 100mcg 1 1/2 tablet Unknown /0000 daily - 02/16 Prevagen Hx Capsules 10mg daily Unknown /0000 - 07/26 Magnesium 00 Hx Tablets 210mg 1 po daily Unknown Lactate /0000 - 08/14 Vitamin B 00 Hx Tablets 1 by mouth Unknown Complex /0000 every day - 12/19 [place] III Hx Capsules 1000mg 90cap 1 by mouth Unknown Epa+Dha /0000 s every day - 12/19 Barley Max 00 Hx Powder drink Unknown / - 07/26 Lecithin 00 Hx Capsules 1 tbsp.po Unknown /0000 daily - 07/26 Ashwaganda 00 Hx Capsule 470mg 1 po daily Unknown Extract /0000 - 12/19 Coconut Oil 00/00 Hx Oil 1 Tbsp po Unknown /0000 daily - 07/26 Sahra 00 Hx Capsule 1 cap po Unknown /0000 daily - 07/26 Stool Softener 00 Hx Capsules 100mg 1 by mouth Unknown /0000 daily prn - 12/19 Tramadol HCL 00/00 Hx Tablets 50mg 1-2 tablets Unknown /0000 [...] Adrián Reyes 99M 014 Kirsten Velez M.D., [facility], Per Unit Dose FASNC Up To 40 Millicuries Technetium TC Administered Injection Daniela 99M 014 Kirsten Teresa M.D. Per Unit Dose Up To 40 Millicuries Immunizations Description No Information Available Vital Signs Date Vital Result Comment 07/22/2018 9:02am Height 62 inches 5'2" Weight [...] Result H/L Range Note Laboratory test 02/19/2017 [facility] Magnesium 2.2 mg/dL N 1.9-2.7 1, 2 finding [address] [place] [address] [phone] Basic Metabolic 02/28/2016 [facility] Sodium 139 mmol/L N 133- 145 3 Panel [address] [place] [address] [phone] Potassium 4.1 mmol/L N 3.5-5.0 Chloride 106 [...] D Total 65 ng/mL N 5 1 [id number] 2 [id number] 3 [id number] 4 Because ethnic data is not always [...] levels within this range. Test Performed by: [place] [address] Quality Control Specialist: Orion Claudio II, M.D., Ph.D. Procedures Date Code Description Status 09/16/2016 22086 ECHO Transthorasic Realtime 2D W Doppler & Color Flow Hosp Completed 10/07/2015 45873 Inject/Drain Joint/Bursa Major W/O US Completed 07/09/2015 82907 EKG, Interpretation Only Completed 05/29/2015 49304 ECHO Transthorasic Realtime 2D W Doppler & Color Flow Hosp Completed 05/29/2015 89128 EKG, Interpretation Only Completed 02/23/2014 16574 Stress Test Completed 02/23/2014 72228 Myocardial Perfusion Imaging Tomographic (Spect) Multiple Completed Studies 02/23/2014 65698 Myocardial Perfusion Imaging Tomographic (Spect) Multiple Completed Studies 02/19/2014 18052 ECHO Transthoracic, Real-Time 2D With Doppler And Color Completed Flow 02/16/2014 93111 EKG Tracing & Interpretation Completed 12/30/2013 70186 Holter Monitor Review (24 hr)dr renee & martell only Completed 09/27/2003 89517 Color Doppler Completed 09/27/2003 39503 Pulse Doppler & Continuous Wave Completed 09/27/2003 00498 Echocardiogram Completed Encounters Type Date Location Provider Dx Diagnosis Office Visit 04/03/2017 [place] [facility] Ligia Shukla, R26.81 Unsteadiness on 1:30p Services Of Obdulio Drake feet Z86.73 Prsnl hx of TIA (TIA), and cereb infrc w/o resid deficits Office Visit 12/05/2016 1:30p [place] [facility] Ligia Shukla, I10 Essential (primary) Services Of Obdulio Drake hypertension I48.91 Unspecified atrial fibrillation Z86.73 Prsnl hx of TIA (TIA), and cereb infrc w/o resid deficits Office Visit 09/17/2016 2:34p [facility] Shashank I63.9 Cerebral Assoc,barbara Hamm M.D. infarction, Hospitalists unspecified I48.0 Paroxysmal atrial fibrillation I10 Essential (primary) hypertension Z86.73 Prsnl hx of TIA (TIA), and cereb infrc w/o resid deficits Office Visit 09/16/2016 Neurohospitalist Hipolito Rao63.9 Cerebral 4:55p Mono Grimaldo M.D. infarction, unspecified I10 Essential (primary) hypertension Office Visit 09/16/2016 2:34p [facility] Bart I63.9 Cerebral Assoc,barbara Desouza M.D. infarction, Hospitalists unspecified I48.0 Paroxysmal atrial fibrillation I10 Essential (primary) hypertension Z86.73 Prsnl hx of TIA (TIA), and cereb infrc w/o resid deficits Office Visit 09/15/2016 [facility] Hipolito Zuniga I63.9 Cerebral 4:53p Mono Grimaldo M.D. 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 without Hospitalists hematuria R40.4 Transient alteration of awareness I10 Essential (primary) hypertension [facility] Transient 1:04p Assbarbara hu II, M.D. alteration of Hospitalists awareness N30.00 Acute cystitis without hematuria I10 Essential (primary) hypertension Office Visit 05/29/2015 [facility] Ligia G45.9 Transient 11:22a Mono Shukla M.D. cerebral ischemic attack, unspecified Office Visit 05/29/2015 [facility] Marc Freitas, G45.9 Transient 1:59p Assocbarbara M.D. cerebral ischemic attack, unspecified I10 Essential (primary) hypertension F41.9 Anxiety disorder, unspecified Office Visit 05/28/2015 [facility] Ligia G45.9 Transient 10:59a Mono Shukla M.D. cerebral ischemic attack, unspecified I10 Essential (primary) hypertension E78.0 Pure hypercholesterolemia Office Visit 05/27[facility] G45.9 Transient 1:58p Assbarbara hu II, M.D. cerebral Hospitalists ischemic attack, unspecified I10 Essential (primary) hypertension F41.9 Anxiety disorder, unspecified Office Visit 04/07/2015 [facility] Delfin 590.80 Pyelonephritis 1:08p barbara Mazariegos M.D. Unspec Hospitalists 038.9 Septicemia Unspec 288.60 Leukocytosis, Unspecified Office Visit 04/06/2015 [facility] Delfin 590.80 Pyelonephritis 1:08p barbara Mazariegos M.D. Unspec Hospitalists 038.9 Septicemia Unspec 288.60 Leukocytosis, Unspecified Office Visit 04/05/2015 [facility] Delfin 590.80 Pyelonephritis 1:07p barbara Mazariegos M.D. Unspec Hospitalists 288.60 Leukocytosis, Unspecified 038.9 Septicemia Unspec Office Visit 04/04/2015 [facility] Shashank 590.80 Pyelonephritis 1:07p barbara Mazariegos M.D. Unspec Hospitalists 288.60 Leukocytosis, Unspecified 038.9 Septicemia Unspec Office Visit 04/03/2015 [facility] Jia 590.80 Pyelonephritis 1:07p barbara Mazariegos M.D. Unspec Hospitalists 038.9 Septicemia Unspec 288.60 Leukocytosis, Unspecified Office Visit 04/02/2015 1:06p [facility] Jia 599.0 UTI Urinary Assoc,barbara Strange M.D. Tract Infection Hospitalists Site Not Spec 038.9 Septicemia Unspec 401.9 Hypertension Unspec Office Visit 04/01/2015 1:05p [facility] Jia 584.9 Acute Kidney Assoc,barbara Strange M.D. Failure, Hospitalists Unspecified 038.9 Septicemia Unspec 599.0 UTI Urinary Tract Infection Site Not Spec 401.9 Hypertension Unspec [facility] Visit [facility] 038.8 Septicemias Other Infectious Vidal Brown Spec Diseases 995.91 Sepsis 590.80 Pyelonephritis Unspec 401.1 Hypertension Benign Office Visit 03/31/2015 1:05p [facility] Jia 599.0 UTI Urinary Assoc,barbara Strange M.D. Tract Infection Hospitalists Site Not Spec 584.9 Acute Kidney Failure, Unspecified 038.9 Septicemia Unspec Office Visit 03/30/2015 1:05p [facility] Jia 599.0 UTI Urinary Assoc,barbara Strange M.D. Tract Infection Hospitalists Site Not Spec 584.9 Acute Kidney Failure, Unspecified 038.9 Septicemia Unspec Office Visit 03/29/2015 1:04p [facility] Jia 599.0 UTI Urinary Assoc,pc Vidal Strange Tract Infection Hospitalists Site Not Spec 584.9 Acute Kidney Failure, Unspecified 038.9 Septicemia Unspec 401.9 Hypertension Unspec Office Visit 03/28/2015 1:03p [facility] Tiff Rees, 599.0 UTI Urinary Assoc,pc N.P. Tract Infection Hospitalists Site Not Spec 584.9 Acute Kidney Failure, Unspecified 780.97 Altered Mental Status 401.9 Hypertension Unspec Office Visit 12/20/2014 9:30a [place] [facility] Ligia Shukla, 799.59 Other Signs And Services Of [facility] Vidal Symptoms Involving Cognition 437.1 Cerebrovascular Disease Ischemic Generalized Other 781.2 Gait Abnormality Office Visit 11/29/2014 [place] Ligia Shukla, 437.1 Cerebrovascular 10:00a Neurologic MKlarissa Disease Ischemic Services Of [facility] Generalized Other 780.79 Malaise And Fatigue Other 780.93 Memory Loss Office Visit 03/09/2014 1:15p [place] [facility] Adrián Reyes 427.31 Atrial Vidal Velez, Fibrillation [facility] Office Visit 02/16/2014 1:15p [place] [facility] Adrián Reyes 427.9 Cardiac Vidal eVlez, Dysrhythmia Unspec [facility] 786.09 Dyspnea & Respiratory Abnormalities Other 794.31 Electrocardiogram (ECG) (EKG) Abnormal Plan of Treatment 07/22/2018 - Shashank Mendenhall, MDS42.401A Unspecified fracture of lower end of right humerus, initialFollow up:Follow up: 10-14 days postop
[2018-08-08 13:30] VITALS: BP 144/55
--- NOTE | 2018-08-08 14:59 | UC ---
General HPI - HPI Summary HPI Summary: Patient presents to urgent care with her [id number]. Patient was sent here the direction of her primary care provider Dr. Barrios. Patient's right arm is in a cast as she broke her elbow and had surgery on . Patient was seen by Dr. Barrios at her place of residence, [place]. Patient here with 2 concerns. 1) patient has a raised cyst on her back that started to drain 2 days ago. Patient states it's painful. Sr. in law states it is read. Dr. [facility] to have it opened and drained. Patient is on any antibiotics. Patient is not immunocompromise. Patient has had these in the past and had them removed by dermatology. Patient takes Tylenol for her elbow and has taken this with some improvement of her pain in her back. 2) patient reports some mild swelling of her left lower extremity. Patient states has been like this for the last [address] Dickey concerned was a DVT. Patient is on aspirin but no other anticoagulation. 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 Patient has any pain. Patient has any falls or trauma. Patient has any paresthesias or weakness. Patient's medications reviewed Patient has is a nursing coming in to evaluate her elbow but they will not be back until Saturday - History of Current Complaint Chief Complaint: Elizabeth Stated Complaint: SKIN ISSUE, ANKLE SWOLLEN Time Seen by Provider: 08/08/18 14:28 Hx Obtained From: Patient, Family/Process Engineering Manager, Medical Records, Other: - Dr Barrios Pain Intensity: 1 - Allergy/Home Medications Allergies/Adverse Reactions: Allergies Allergy/AdvReac Type Severity Reaction Status Date / Time latex Allergy Mild Rash Verified 08/10/18 14:32 lisinopril Allergy Unknown Unknown Verified 08/10/18 14:32 Reaction Details Penicillins Allergy Unknown Unknown Verified 08/10/18 14:32 Reaction Details Home Medications: Home Medications Albuterol HFA INHALER* [Ventolin HFA Inhaler*] 1 - 2 puff INH Q4H PRN 08/08/18 [ History Confirmed 08/08/18] Magnesium Hydroxide LIQ* [Milk of Magnesia LIQ*] 30 ml PO DAILY PRN 08/08/18 [ History Confirmed 08/08/18] PMH/Surg Hx/FS Hx/Imm Hx Previously Healthy: Yes - Surgical History Surgical History: Yes Surgery Procedure, Year, and Place: 1979 PARTIAL HYSTERECTOMY/1984 MODIFIED RADICAL MASTECTOMY / RT BREAST SURGERY FOR CA./1990 CERVICAL DISC FUSION ,/1993 PERIPHERAL SELECTIVE DENERRATION IN HEAD 1994 FOR DISTONIA.(?) / LT BREAST BIOSPY - Family History Known Family History: Positive: Non-Contributory Family History: No FHx of malignant hyperthermia. No FHx of anesthesia reaction - Social History Occupation: Retired Lives: Assisted Living Alcohol Use: None Substance Use Type: None Smoking Status (MU): Never Smoked Tobacco Have You Smoked in the Last Year: No - Immunization History Most Recent Influenza Vaccination: never Most Recent Tetanus Shot: never Most Recent Pneumonia Vaccination: never Review of Systems All Other Systems Reviewed And Are Negative: Yes Skin: Positive: Other - upper back, right draining cyst Musculoskeletal: Positive: Other: - LLE edema - no pain Physical Exam - Summary Physical Exam Summary: Vital Signs Reviewed: Yes A+Ox3, no distress Eyes: Conjunctiva Clear, BERNARDO. EOM intact and full ENT: Hearing grossly normal TM x 2 clear, mmoist, uvula midline, no exudate, no erythema Neck: Positive: Supple Respiratory: Positive: No respiratory distress, No accessory muscle use + CTA throughout no w/r Cardiovascular: RRR nl s1, s2 no m/r CBT <2 sec 1+ Edema left LE - abd soft + BS nt/nd no guarding, no distension Musculoskeletal Exam: RUE in splint s/p surgery - pt declined sling Neurological: Positive: Alert, + sensation throughout Psychological: Positive: Normal Response To Family Skin: Positive: no rash, no ecchymosis right upper back pt with 2x3cm area of erythema with fluctuance infected cyst, no drainage mild TTP well demarcated Triage Information Reviewed: Yes Vital Signs: Initial Vital Signs Temp 98.6 F 08/08/18 13:25 Pulse 82 08/08/18 13:25 Resp 18 08/08/18 13:25 BP 144/55 08/08/18 13:25 Pulse Ox 99 08/08/18 13:25 Procedures - Procedure Summary Procedure Summary: time out with RN at bedside routine sterile prep anthetized with lidocaine used 11 blade to open cyst copious yellow discharge, slight odor culture taken use mosqioto for loculations irrigate under pressure 300ml packing placed cover pt tolerated well - Incision and Drainage Right Upper Posterior Back Dorsal Site: right upper back Anesthesia: Local, Lidocaine - 1.5ml Instrument(s): Scalpel Packing: Gauze Diagnostics - Radiology No standard instances Radiology Interpretation Completed By: Radiologist - Patient Name: ELVIS ARIZMENDI Medical Record#: [id number] Ordering Physician: Robyn Aparicio MD Acct.#: [id number] : 1935 Age: 82 Sex: F Location: [facility] Exam Date: 08/08/18 1345 ADM Status: REG ER Order Information: VL LOWER EXT VEINS LEFT Accession Number: [id number] CPT: 76732 INDICATION: Left lower leg edema. COMPARISON: There are no relevant prior studies available for comparison. TECHNIQUE: Multiple real-time, color flow and Doppler tracings of the left lower extremity were obtained. FINDINGS: The common femoral, femoral, profunda femoral and popliteal veins all demonstrate normal compressibility, augmentation with compression and phasic response with respiration. The posterior tibial and peroneal veins demonstrate normal compressibility and augmentation with compression. IMPRESSION: NO EVIDENCE FOR DEEP VENOUS THROMBOSIS. < Electronically signed by Leon Ward MD in OV> 08/08/18 1443 Dictated By: Leon Ward MD Dictated Date/Time: 08/08/18 1443 Transcribed Date/Time: 1442 Copy to: CC:Robyn Aparicio MD; Debbie Bang MD; Jenny Barrios MD Imaging - [facility] Imaging - [place] [facility] [address] [address] ph ([phone]) ph ([phone]) ph ) This report is only to be considered final once signed by the Provider(s) as displayed in the "<Electronically Signed by >" field (s). Absence of a signature indicates the report is in a draft status and still needs to be finalized. In the event this document was created by someone other than the signing Provider, the individual initiating the document will be listed in the "Entered by:" or "Dictated by:" rogers. 1 of 1 Course/Dx - Course Course Of Treatment: Pt sent by PCP with 2 concners. 1) pt with mild edema LLQ - ultrasound no dvt. recommend elevate. f/u with pcp. 2) unfected sebaceous cyst with cellulitis. I+D with packing. abx. return precaution. spoke with Dr. Barrios in agreement with plan. sster in law present - states understanding. return precautions. PT has APAP prn. Slight elevate BP - f/u with pcp - Diagnoses Provider Diagnosis: Cyst, Leg edema, left, Infected sebaceous cyst Discharge - Sign-Out/Discharge Documenting (check all that apply): Patient Departure All imaging exams completed and their final reports reviewed: Yes - Discharge Plan Condition: Stable Disposition: HOME Prescriptions: DOXYcycline CAP(*) [DOXYcycline 100MG CAP(*)] 100 mg PO BID #20 cap Patient Education Materials: Abscess (ED), Epidermal Inclusion Cysts (ED) Referrals: Jenny Barrios MD [Primary Care Provider] - Additional Instructions: - Keep wound bandage until recheck - return to urgent care on 08/10/18 for packing removal - Okay to take Tylenol as needed for pain - Take antibiotics as prescribed until gone. A culture of the pus from your wound is being tested. If you need a different treatment, you will receive call from a care steam plant control room operator - contact Dr. Barrios or go to the emergency department for further evaluation and treatment Your ultrasound shows no blood clot in your leg Elevate your leg to help with swelling Schedule a recheck with Dr. Barrios to further discuss your leg swelling - Billing Disposition and Condition Condition: STABLE Disposition: Home
[2018-08-08] MEDS ORDERED: Lidocaine 1%* 5 ML VIAL INJ ONE (15:09)
--- NOTE | 2018-08-09 09:32 | UC ---
- Progress Note Progress Note: LAB RESULT: MRSA NEGATIVE FROM CYST; S. AUREUS NEGATIVE CULTURE PENDING. ROMULO PEREZ MD 08/09/18 Course/Dx - Diagnoses Provider Diagnoses: Cyst Is Visit Related: No Discharge - Sign-Out/Discharge Documenting (check all that apply): Post-Discharge Follow Up All imaging exams completed and their final reports reviewed: Yes - Discharge Plan Condition: Stable Disposition: HOME Prescriptions: DOXYcycline CAP(*) [DOXYcycline 100MG CAP(*)] 100 mg PO BID #20 cap Patient Education Materials: Abscess (ED), Epidermal Inclusion Cysts (ED) Referrals: Jenny Barrios MD [Primary Care Provider] - Additional Instructions: - Keep wound bandage until recheck - return to urgent care on 08/10/18 for packing removal - Okay to take Tylenol as needed for pain - Take antibiotics as prescribed until gone. A culture of the pus from your wound is being tested. If you need a different treatment, you will receive call from a care steam train driver - contact Dr. Barrios or go to the emergency department for further evaluation and treatment Your ultrasound shows no blood clot in your leg Elevate your leg to help with swelling Schedule a recheck with Dr. Barrios to further discuss your leg swelling - Billing Disposition and Condition Condition: STABLE Disposition: Home
--- NOTE | 2018-08-11 15:17 | UC ---
- Progress Note Progress Note: Wound culture final with Finegoldia without sensitivities performed. Pt was placed on doxycycline which should have good coverage for anarobes. At this f/u on 08/10 the wound appeared to be improving according to note. No change to treatment Course/Dx - Diagnoses Provider Diagnoses: Cyst Is Visit Related: No Discharge - Sign-Out/Discharge Documenting (check all that apply): Post-Discharge Follow Up All imaging exams completed and their final reports reviewed: Yes - Discharge Plan Condition: Stable Disposition: HOME Prescriptions: DOXYcycline CAP(*) [DOXYcycline 100MG CAP(*)] 100 mg PO BID #20 cap Patient Education Materials: Abscess (ED), Epidermal Inclusion Cysts (ED) Referrals: Jenny Barrios MD [Primary Care Provider] - Additional Instructions: - Keep wound bandage until recheck - return to urgent care on 08/10/18 for packing removal - Okay to take Tylenol as needed for pain - Take antibiotics as prescribed until gone. A culture of the pus from your wound is being tested. If you need a different treatment, you will receive call from a care produce production team member - contact Dr. Barrios or go to the emergency department for further evaluation and treatment Your ultrasound shows no blood clot in your leg Elevate your leg to help with swelling Schedule a recheck with Dr. Barrios to further discuss your leg swelling - Billing Disposition and Condition Condition: STABLE Disposition: Home
== END 2018-08-08 16:09 | disposition home or self-care (01) ==
LOC: UCEAST 13:20
DX: L72.3 Sebaceous cyst (principal); R60.0 Localized edema; L08.9 Local infection of the skin and subcutaneous tissue, unspecified; Z91.040 Latex allergy status; Z88.8 Allergy status to other drugs, medicaments and biological substances; Z88.0 Allergy status to penicillin
CPT/HCPCS: 10060; 87070; 87076; 87205; 87640; 87641; 99212; G0463

== ENCOUNTER → 2018-08-10 14:11 | Emergency (ER) | payer MEDICARE ==
[2018-08-10 14:31] VITALS: BP 122/71
--- NOTE | 2018-08-10 15:15 | UC ---
Skin Complaint HPI - HPI Summary HPI Summary: 82 y/o female presents to the urgent care accompany by sister in-law requesting wound check and change on packing on her back abscess. Pt reports she was seen here at the clinic 2 days ago and was told to return to the urgent care for wound check up and change in packing. Pt states feeling better and redness has decrease. She was Rx Doxyxycline PO which she still takes it. Sister in-law states Pt lives in [facility] in [place] and there is no one who can change dressing there. Pt also states Hx of RT elbow fracture during [facility] and was hospitalized. While in [facility] she developed the mid back cyst. hShe has Hx of these cysts which are usually treated by her [facility] [employer] DR Chou. Pt denies Hx of MRSA. Pt denies fever, chills, SOB, chest pain, abdominal pain, N/V/D. - History of Current Complaint Chief Complaint: UCWounds Time Seen by Provider: 08/10/18 14:32 Stated Complaint: WOUND RECHECK Hx Obtained From: Patient ?: No - menopausal Onset/Duration: Gradual Onset, Lasting Weeks - 4 days, Still Present Skin Exposure Onset/Duration: Days Ago - 4 days ago Timing: Constant Onset Severity: Severe Current Severity: Mild Pain Intensity: 2 Pain Scale Used: 0-10 Numeric Location: Discrete - mid back infected cyst Character: Swelling, Raised, Painful Aggravating Factor(s): Clothing, Touch Alleviating Factor(s): Other - antibiotics and I&D Associated Signs & Symptoms: Positive: Rash - on the mid back w/ infected cyst, Drainage, Tenderness. Negative: Nausea, Vomiting, Numbness, Thirst, Diaphoresis , Weakness, Fever, Chills Related History: Other: - Hx of abscesses - Allergy/Home Medications Allergies/Adverse Reactions: Allergies Allergy/AdvReac Type Severity Reaction Status Date / Time latex Allergy Mild Rash Verified 08/10/18 14:32 lisinopril Allergy Unknown Unknown Verified 08/10/18 14:32 Reaction Details Penicillins Allergy Unknown Unknown Verified 08/10/18 14:32 Reaction Details PMH/Surg Hx/FS Hx/Imm Hx Previously Healthy: Yes Endocrine History: Dyslipidemia Cardiovascular History: Hypertension GI/ History: Gastroesophageal Reflux Psychological History: Depression - Surgical History Surgical History: Yes Surgery Procedure, Year, and Place: 1979 PARTIAL HYSTERECTOMY/1984 MODIFIED RADICAL MASTECTOMY / RT BREAST SURGERY FOR CA./1990 CERVICAL DISC FUSION ,/1993 PERIPHERAL SELECTIVE DENERRATION IN HEAD 1993 FOR DISTONIA.(?) / LT BREAST BIOSPY - Family History Known Family History: Positive: None - Pt can't recall, Non-Contributory Family History: No FHx of malignant hyperthermia. No FHx of anesthesia reaction - Social History Occupation: Retired Lives: Assisted Living Alcohol Use: None Substance Use Type: None Smoking Status (MU): Never Smoked Tobacco Have You Smoked in the Last Year: No - Immunization History Most Recent Influenza Vaccination: never Most Recent Tetanus Shot: never Most Recent Pneumonia Vaccination: never Review of Systems All Other Systems Reviewed And Are Negative: Yes Constitutional: Positive: Negative Skin: Positive: Other - mid back abscess s/p I&D Eyes: Positive: Negative ENT: Positive: Negative Respiratory: Positive: Negative Cardiovascular: Positive: Negative Gastrointestinal: Positive: Negative Genitourinary: Positive: Negative Motor: Positive: Negative Neurovascular: Positive: Negative Musculoskeletal: Positive: Negative Neurological: Positive: Negative Psychological: Positive: Negative Is Patient Immunocompromised?: No Physical Exam - Summary Physical Exam Summary: Vital Signs Reviewed: Yes General: well developed, well nourished old female sitting in the examining table w/o any apparent distress Eye Exam: Normal Eyes: Positive: Conjunctiva Clear - PERRLA, EOMI, fundi grossly normal ENT: Positive: Normal ENT inspection, Hearing grossly normal, Pharynx normal, TMs normal Neck: Positive: Supple, Nontender, No Lymphadenopathy Respiratory: Positive: Chest non-tender, Lungs clear, Normal breath sounds, No respiratory distress Cardiovascular: Positive: RRR, No Murmur, Pulses Normal, Brisk Capillary Refill Abdomen Description: Positive: Nontender, No Organomegaly, Soft. Negative: CVA Tenderness (R), CVA Tenderness (L) Bowel Sounds: Positive: Present Musculoskeletal: Positive: Strength Intact, ROM Intact, No Edema Neurological: Positive: Alert, Muscle Tone Normal Psychological Exam: Normal Skin: Positive: mid back an erythematous pustule about 2.0cm x 3.0cm in size that is indurated and fluctuant, tender to palpation, w/ packing in place still moderated yellowish purulent discharge still draining, surrounding cellulitis has decrease to what was demarcated 2 days ago. Triage Information Reviewed: Yes Vital Signs: Initial Vital Signs Temp 98.4 F 08/10/18 14:26 Pulse 60 08/10/18 14:26 Resp 18 08/10/18 14:26 BP 122/71 08/10/18 14:26 Pulse Ox 96 08/10/18 14:26 Course/Dx - Course Course Of Treatment: 82 y/o female presents to the urgent care accompany by sister in-law requesting wound check and change on packing on her back abscess. Pt reports she was seen here at the clinic 2 days ago and was told to return to the urgent care for wound check up and change in packing. Pt states feeling better and redness has decrease. She was Rx Doxyxycline PO which she still takes it. Sister in-law states Pt lives in [facility] in [facility] and there is no one who can change dressing there. Pt also states Hx of RT elbow fracture during [facility] and was hospitalized. While in [facility] she developed the mid back cyst. hShe has Hx of these cysts which are usually treated by her [facility] [employer] DR Chou. Pt denies Hx of MRSA. Pt denies fever, chills, SOB, chest pain, abdominal pain, N/V/D. Hx obtained. Pt w/ mid back erythematous pustule about 2.0cm x 3.0cm in size that is indurated and fluctuant , tender to palpation, w/ packing in place still moderated yellowish purulent discharge still draining, surrounding cellulitis has decrease to what was demarcated 2 days ago on examination. Packing removed, moderate purulent yellowish drainage removed, area cleaned w/ Iodine swabs 3X, cysts cleaned w/ and irrigated w/ sterile water until all pus drained.The wound was probed for loculated areas and irrigated with normal saline. The wound was packed loosely with wick again. Bacitracin topical ointment applied and wound covered with sterile dressing. The patient tolerated the procedure well. Wound culture negative for MRSA and Staph Aureus, final reports still pending . Pt advised to continue w/ Doxyxycline PO and to change dressing BID to allow drainage to flow. [place] form filled out w/ change of dressing instructions. Sister In- law advised to f/u up in 2 days for removal of packing and wound check up w/ her PCP, or return here at the clinic. D/C instructions explained. Sister In- Law and Pt understands and agreed with plan of care. Pt left clinic hemodynamically stable, A&OX3, - Differential Diagnoses - Skin Complaint Differential Diagnoses: Abscess, Cellulitis, MRSA - Diagnoses Provider Diagnosis: Abscess of upper back excluding scapular region, Wound check, abscess Discharge - Sign-Out/Discharge Documenting (check all that apply): Patient Departure - d/C home All imaging exams completed and their final reports reviewed: No Studies - Discharge Plan Condition: Stable Disposition: HOME Prescriptions: Bacitracin OINTMENT* 1 applic TOPICAL BID #1 tube Patient Education Materials: Abscess (ED) Referrals: Jenny Barrios MD [Primary Care Provider] - 2 Days Additional Instructions: 1-Final reports for wound culture still pending. You will be notified tomorrow of any abnormality 1-Please continue taking full course of Doxycycline PO as directed avoid resistance. Keep wound clean and dry with a sterile dressing. Apply bacitracin topical as directed 2- F/u wound check up in 2 days with your PCP or at the urgent care for removal of packing 3-.Take Tylenol PO q6-8hrs prn for pain or swelling. 4-If you develop fever or redness despite antibiotic please go to the ER immediately or return to the Urgent care. - Billing Disposition and Condition Condition: STABLE Disposition: Home
== END | disposition home or self-care (01) ==
LOC: UCEAST 14:11
DX: L02.212 Cutaneous abscess of back [any part, except buttock and flank] (principal); Z48.00 Encounter for change or removal of nonsurgical wound dressing; Z88.0 Allergy status to penicillin; Z88.8 Allergy status to other drugs, medicaments and biological substances; I10 Essential (primary) hypertension
CPT/HCPCS: 99212; G0463

== ENCOUNTER 2021-09-08 13:30 | Inpatient (IN) ==
[2021-09-08 14:17] LABS: ABS Basophils 0.1 10^3/ul (0-0.2); ABS Lymphocytes 2.3 10^3/ul (1.0-4.8); ABS Monocytes 1.4 10^3/ul (0-0.8); ABS Neutrophils 8.2 10^3/ul (1.5-7.7); Eosinophil % 0.2 %; Hematocrit 40 % (35-47); Hemoglobin 13.5 g/dL (12.0-16.0); Lymphocyte % 19.2 %; Mean Corpuscular HGB Conc 34 g/dL (31-36); Mean Corpuscular Hemoglobin 32 pg (27-31); Mean Corpuscular Volume 95 fL (80-97); Mean Platelet Volume 7.2 fL (7.4-10.4); Platelet Count 293 10^3/uL (150-450); Red Cell Distribution Width 13 % (10-15)
[2021-09-08 14:32] LABS: INR 1.16 (0.86-1.15)
[2021-09-08 14:35] LABS: Troponin I 0.01 ng/mL (<0.03)
[2021-09-08 14:36] LABS: Albumin 4.5 g/dL (3.2-5.2); Albumin/Globulin Ratio 1.6 (1-3); Calcium 10.5 mg/dL (8.6-10.3); Globulin 2.9 g/dL (2-4); Magnesium 2.4 mg/dL (1.9-2.7); Total Bilirubin 0.6 mg/dL (0.2-1.0); Total Protein 7.4 g/dL (6.4-8.9); eGFR CKD-EPI 67.9 (>60)
[2021-09-08] MEDS ORDERED: Iohexol 300 (CONTRAST) 10 ML SDV IV ONE (14:39)
[2021-09-08 15:34] LABS: Rapid COVID-19 Molecular Undetected (Undetected)
[2021-09-08] MEDS ORDERED: Ondansetron 4 mg VIAL 2 MG/ML 2 ml VIAL IV ONE ×2 (15:34→19:16)
[2021-09-08 15:37] LABS: Urine Appearance Cloudy; Urine Bilirubin Negative (Negative); Urine Blood 1+ (Negative); Urine Color Yellow; Urine Glucose Negative (Negative); Urine Ketones Trace (Negative); Urine Nitrite Negative (Negative); Urine Protein 1+(30 mg/dL) (Negative); Urine Specific Gravity 1.023 (1.002-1.030); Urine Urobilinogen Negative (Negative)
[2021-09-08 15:42] LABS: Urine Bacteria 2+ (Absent); Urine Red Blood Cell 2+(6-10/hpf) (Absent); Urine White Blood Cell 3+(>20/hpf) (Absent)
[2021-09-08] MEDS ORDERED: cefTRIAXone 1 gm/50 mL NS BAG 1 GM/50 ML BAG IV ONE (15:47)
[2021-09-08] MEDS ORDERED: Azithromycin 500 mg/250 ml NS 500 MG/250 ML BAG IVPB ONE (17:35)
[2021-09-08] MEDS ORDERED: Iohexol 350 (CONTRAST) 500 ML MDV IV ONE (18:14)
[2021-09-08] MEDS ORDERED: Lactated Ringers 1000 ml BAG 1,000 ML IV SCH (19:00)
[2021-09-08 19:45] LABS: Hematocrit 38 % (35-47); Mean Corpuscular HGB Conc 34 g/dL (31-36); Mean Corpuscular Hemoglobin 32 pg (27-31); Mean Corpuscular Volume 94 fL (80-97); Mean Platelet Volume 6.8 fL (7.4-10.4); Platelet Count 260 10^3/uL (150-450); Red Blood Count 4.06 10^6 /uL (3.70-4.87); Red Cell Distribution Width 13 % (10-15); White Blood Count 13.8 10^3/uL (3.5-10.8)
[2021-09-08 20:14] LABS: Troponin I 0.03 ng/mL (<0.03)
[2021-09-08] MEDS ORDERED: Magnesium Hydroxide LIQ 30 ML UDC PO PRN (21:01)
[2021-09-08] MEDS ORDERED: Senna TAB 8.6 mg TAB PO PRN (21:01)
[2021-09-09] MEDS: Dextran 70/Hypromellose Tears Eye Drops 15 ml BTL (for Artificials Tears) BOTH EYES SCH ×2 (09:48→20:17)
[2021-09-09] MEDS: Multivitamins/Minera Areds(NF) CAP PO SCH ×2 (09:49→20:13)
[2021-09-09 10:26] LABS: ABS Basophils 0.1 10^3/ul (0-0.2); ABS Eosinophils 0.2 10^3/ul (0-0.6); ABS Monocytes 0.9 10^3/ul (0-0.8); ABS Neutrophils 6.1 10^3/ul (1.5-7.7); Eosinophil % 2.2 %; Hematocrit 38 % (35-47); Hemoglobin 12.8 g/dL (12.0-16.0); Lymphocyte % 21.3 %; Mean Corpuscular HGB Conc 34 g/dL (31-36); Mean Corpuscular Hemoglobin 32 pg (27-31); Mean Corpuscular Volume 96 fL (80-97); Mean Platelet Volume 6.9 fL (7.4-10.4); Platelet Count 247 10^3/uL (150-450); Red Blood Count 3.97 10^6 /uL (3.70-4.87); Red Cell Distribution Width 13 % (10-15); White Blood Count 9.2 10^3/uL (3.5-10.8)
[2021-09-09 10:38] LABS: Calcium 9.3 mg/dL (8.6-10.3); eGFR CKD-EPI 80.2 (>60)
[2021-09-09] MEDS: cefTRIAXone 1 gm/50 mL NS BAG 1 GM/50 ML BAG IV SCH (15:58)
[2021-09-10 07:24] LABS: ABS Basophils 0.1 10^3/ul (0-0.2); ABS Eosinophils 0.3 10^3/ul (0-0.6); ABS Neutrophils 6.7 10^3/ul (1.5-7.7); Eosinophil % 2.6 %; Hematocrit 40 % (35-47); Hemoglobin 13.7 g/dL (12.0-16.0); Lymphocyte % 27.1 %; Mean Corpuscular HGB Conc 34 g/dL (31-36); Mean Corpuscular Hemoglobin 32 pg (27-31); Mean Corpuscular Volume 94 fL (80-97); Mean Platelet Volume 6.9 fL (7.4-10.4); Platelet Count 271 10^3/uL (150-450); Red Blood Count 4.22 10^6 /uL (3.70-4.87); Red Cell Distribution Width 12 % (10-15)
[2021-09-10 07:39] LABS: Calcium 9.5 mg/dL (8.6-10.3); Magnesium 2.3 mg/dL (1.9-2.7); Potassium 3.6 mmol/L (3.5-5.0); eGFR CKD-EPI 84.3 (>60)
[2021-09-10] MEDS: Multivitamins/Minera Areds(NF) CAP PO SCH ×2 (09:24→21:24)
[2021-09-10] MEDS: Dextran 70/Hypromellose Tears Eye Drops 15 ml BTL (for Artificials Tears) BOTH EYES SCH ×2 (09:26→21:24)
[2021-09-10] MEDS: cefTRIAXone 1 gm/50 mL NS BAG 1 GM/50 ML BAG IV SCH (16:42)
[2021-09-10] MEDS: Polyethylene Glycol 3350 17 GM PACKET PO PRN (21:24)
[2021-09-11 06:22] LABS: ABS Eosinophils 0.1 10^3/ul (0-0.6); ABS Lymphocytes 2.1 10^3/ul (1.0-4.8); ABS Neutrophils 7.1 10^3/ul (1.5-7.7); Eosinophil % 1.1 %; Hematocrit 40 % (35-47); Hemoglobin 13.7 g/dL (12.0-16.0); Lymphocyte % 20.6 %; Mean Corpuscular HGB Conc 34 g/dL (31-36); Mean Corpuscular Hemoglobin 32 pg (27-31); Mean Corpuscular Volume 94 fL (80-97); Mean Platelet Volume 7.1 fL (7.4-10.4); Platelet Count 268 10^3/uL (150-450); Red Blood Count 4.23 10^6 /uL (3.70-4.87); Red Cell Distribution Width 13 % (10-15); White Blood Count 10.4 10^3/uL (3.5-10.8)
[2021-09-11 06:43] LABS: Calcium 9.4 mg/dL (8.6-10.3); Potassium 3.5 mmol/L (3.5-5.0); eGFR CKD-EPI 86.4 (>60)
[2021-09-11] MEDS: Multivitamins/Minera Areds(NF) CAP PO SCH ×2 (11:48→21:32)
[2021-09-11] MEDS: Dextran 70/Hypromellose Tears Eye Drops 15 ml BTL (for Artificials Tears) BOTH EYES SCH ×3 (11:53→22:06)
[2021-09-11] MEDS: Polyethylene Glycol 3350 17 GM PACKET PO PRN (12:10)
[2021-09-11 14:14] LABS: TSH Ultra Thyroid Stim Horm 1.31 mcIU/mL (0.34-5.60)
[2021-09-11 14:25] LABS: Folate 13.86 ng/mL (5.90-24.80)
[2021-09-11 14:29] LABS: Vitamin D Total 25(OH) 57.7 ng/mL (20-50)
[2021-09-11] MEDS: cefTRIAXone 1 gm/50 mL NS BAG 1 GM/50 ML BAG IV SCH (16:36)
[2021-09-12 07:52] LABS: ABS Basophils 0.1 10^3/ul (0-0.2); ABS Eosinophils 0.3 10^3/ul (0-0.6); ABS Lymphocytes 2.1 10^3/ul (1.0-4.8); ABS Monocytes 0.9 10^3/ul (0-0.8); ABS Neutrophils 4.3 10^3/ul (1.5-7.7); Eosinophil % 3.9 %; Hematocrit 38 % (35-47); Hemoglobin 13.2 g/dL (12.0-16.0); Lymphocyte % 27.7 %; Mean Corpuscular HGB Conc 34 g/dL (31-36); Mean Corpuscular Hemoglobin 32 pg (27-31); Mean Corpuscular Volume 95 fL (80-97); Platelet Count 274 10^3/uL (150-450); Red Blood Count 4.07 10^6 /uL (3.70-4.87); Red Cell Distribution Width 13 % (10-15); White Blood Count 7.7 10^3/uL (3.5-10.8)
[2021-09-12 08:28] LABS: Calcium 9.5 mg/dL (8.6-10.3); Potassium 3.6 mmol/L (3.5-5.0)
[2021-09-12 08:33] LABS: eGFR CKD-EPI 75.3 (>60)
[2021-09-12] MEDS: Dextran 70/Hypromellose Tears Eye Drops 15 ml BTL (for Artificials Tears) BOTH EYES SCH (08:41)
[2021-09-12] MEDS: Multivitamins/Minera Areds(NF) CAP PO SCH (08:42)
[2021-09-12 15:35] VITALS: BP 141/60
== END 2021-09-12 15:35 | DRG 175 ==
LOC: ED 13:30 → EDHOLD 13:30 → SUATTDRO 20:08 → OBSVTOIN 20:08 → MEDTELE 22:57 → SUATTDRO 09-09 00:12 → INTOOBSV 09-09 00:12 → MEDTELE 09-09 00:13
PROVIDERS: ADMIT Internal Medicine; ATTEND Family Medicine

== ENCOUNTER 2024-07-14 15:38 | Observation (INO) ==
[2024-07-14 16:53] LABS: ABS Eosinophils 0.2 10^3/uL (0.0-0.5); ABS Lymphocytes 2.1 10^3/uL (1.0-4.8); ABS Monocytes 1.4 10^3/uL (0.0-0.9); ABS Neutrophils 9.9 10^3/uL (1.5-7.6); ABS Nucleated RBC 0.01 10^3/ul; Eosinophil % 1.7 %; Hematocrit 27.6 % (35-45); Hemoglobin 9.3 g/dL (11.5-14.3); Mean Corpuscular Hemoglobin 31.8 pg (27-33); Mean Corpuscular Hgb Conc 33.8 g/dL (31-36); Mean Platelet Volume 7.1 fL (7.5-11.2); Platelet Count 321 10^3/uL (150-450); Red Blood Count 2.94 10^6/uL (3.63-4.92); White Blood Count 13.7 10^3/uL (3.8-11.8)
[2024-07-14 17:04] LABS: Urine Appearance Turbid; Urine Bilirubin Negative (Negative); Urine Blood 2+ (Negative); Urine Color Yellow; Urine Glucose Negative (Negative); Urine Ketones Negative (Negative); Urine Nitrite Negative (Negative); Urine Protein 1+ (>=30 mg/dL) (Negative); Urine Urobilinogen Negative (Negative)
[2024-07-14 17:10] LABS: Urine Bacteria 3+ /HPF (Absent); Urine Red Blood Cell 3+(>10/hpf) /HPF (0-Trace); Urine White Blood Cell 3+(>20/hpf) /HPF (0-Trace)
[2024-07-14 17:17] LABS: Albumin 3.5 g/dL (3.2-5.2); Albumin/Globulin Ratio 1.8 (1-3); Calcium 9.4 mg/dL (8.6-10.3); Creatinine, Serum 0.71 mg/dL (0.51-0.95); Magnesium 1.9 mg/dL (1.9-2.7); Potassium 3.3 mmol/L (3.5-5.0); Total Bilirubin 1.3 mg/dL (0.2-1.0); Total Protein 5.5 g/dL (6.4-8.9); eGFR CKD-EPI 82.8 (>60)
[2024-07-14 17:30] LABS: TSH Ultra Thyroid Stim Horm 1.2 mcIU/mL (0.34-5.60)
[2024-07-14] MEDS: cefTRIAXone 1 gm/50 mL D5W 1 GM/50 ML BAG IV ONE (17:56)
[2024-07-14 18:24] LABS: High Sensitivity Troponin 1 Hr 9 pg/mL (<15)
[2024-07-14] MEDS ORDERED: Polyethylene Glycol 3350 17 GM PACKET PO PRN (22:03)
[2024-07-14] MEDS ORDERED: Magnesium Hydroxide LIQ 30 ML UDC PO PRN (22:03)
[2024-07-14] MEDS ORDERED: Senna TAB 8.6 mg TAB PO PRN (22:03)
[2024-07-15 07:04] LABS: Hematocrit 27.4 % (35-45); Hemoglobin 9.4 g/dL (11.5-14.3); Mean Corpuscular Hemoglobin 32.2 pg (27-33); Mean Corpuscular Hgb Conc 34.3 g/dL (31-36); Mean Corpuscular Volume 93.7 fL (80-97); Mean Platelet Volume 7.2 fL (7.5-11.2); Platelet Count 336 10^3/uL (150-450); Red Blood Count 2.93 10^6/uL (3.63-4.92); Red Cell Distribution Width 12.9 % (12-17); White Blood Count 14.7 10^3/uL (3.8-11.8)
[2024-07-15 07:21] LABS: Calcium 9.1 mg/dL (8.6-10.3); Creatinine, Serum 0.6 mg/dL (0.51-0.95); Potassium 3.5 mmol/L (3.5-5.0); eGFR CKD-EPI 87.4 (>60)
[2024-07-15 07:46] LABS: Folate 11.37 ng/mL (5.90-24.80)
[2024-07-15] MEDS: Potassium Chlor 20 meq TAB.ER PO ONE (08:31)
[2024-07-15] MEDS: Dextran 70/Hypromellose Tears Eye Drops 15 ml BTL (for Artificials Tears) BOTH EYES SCH (08:35)
[2024-07-15] MEDS ORDERED: Heparin 5000 UNITS/ML 1 mL VIAL IV SCH (19:00)
[2024-07-15] MEDS: Heparin DRIP 25,000 UNITS BAG 25,000 UNITS/250 ML BAG IV SCH (20:06)
[2024-07-15] MEDS: cefTRIAXone 1 gm/50 mL D5W 1 GM/50 ML BAG IV SCH (20:08)
[2024-07-15] MEDS ORDERED: Heparin 5000 UNITS/ML 1 mL VIAL SUBCUT SCH (21:00)
[2024-07-16 03:09] LABS: Hematocrit 26.3 % (35-45); Hemoglobin 8.8 g/dL (11.5-14.3); Mean Corpuscular Hemoglobin 31.7 pg (27-33); Mean Corpuscular Hgb Conc 33.7 g/dL (31-36); Mean Corpuscular Volume 94.1 fL (80-97); Mean Platelet Volume 7.3 fL (7.5-11.2); Platelet Count 353 10^3/uL (150-450); Red Blood Count 2.79 10^6/uL (3.63-4.92); Red Cell Distribution Width 13.3 % (12-17); White Blood Count 12.6 10^3/uL (3.8-11.8)
[2024-07-16 03:11] LABS: Calcium 9.2 mg/dL (8.6-10.3); Creatinine, Serum 0.58 mg/dL (0.51-0.95); Potassium 3.5 mmol/L (3.5-5.0); eGFR CKD-EPI 88.1 (>60)
[2024-07-16] MEDS: Potassium Chlor 20 meq TAB.ER PO ONE (09:36)
[2024-07-16] MEDS: Potassium Chloride LIQUID 20 MEQ/15 ML LIQUID PO ONE (10:08)
[2024-07-17 06:30] LABS: Hemoglobin 10.2 g/dL (11.5-14.3); Mean Corpuscular Volume 94.3 fL (80-97); Mean Platelet Volume 6.7 fL (7.5-11.2); Platelet Count 478 10^3/uL (150-450); Red Blood Count 3.19 10^6/uL (3.63-4.92); Red Cell Distribution Width 13.3 % (12-17); White Blood Count 11.6 10^3/uL (3.8-11.8)
[2024-07-17 07:14] LABS: Calcium 9.4 mg/dL (8.6-10.3); Creatinine, Serum 0.68 mg/dL (0.51-0.95); Potassium 3.8 mmol/L (3.5-5.0); eGFR CKD-EPI 84.8 (>60)
[2024-07-17] MEDS: Senna TAB 8.6 mg TAB PO SCH (10:41)
[2024-07-17] MEDS: Polyethylene Glycol 3350 17 GM PACKET PO SCH (10:41)
[2024-07-20 06:41] LABS: Hematocrit 30.7 % (35-45); Hemoglobin 10.4 g/dL (11.5-14.3); Mean Corpuscular Hemoglobin 32.4 pg (27-33); Mean Corpuscular Hgb Conc 33.9 g/dL (31-36); Mean Corpuscular Volume 95.5 fL (80-97); Mean Platelet Volume 6.6 fL (7.5-11.2); Platelet Count 513 10^3/uL (150-450); Red Blood Count 3.22 10^6/uL (3.63-4.92); Red Cell Distribution Width 13.9 % (12-17); White Blood Count 13.4 10^3/uL (3.8-11.8)
[2024-07-20 10:43] VITALS: BP 94/48
[2024-07-20 11:20] LABS: Rapid COVID-19 Molecular Undetected (Undetected)
== END 2024-07-20 14:24 ==
LOC: ED 15:38 → EDHOLD 19:01 → SUATTDRO 19:01 → INTOOBSV 19:01 → MED 07-15 09:11
PROVIDERS: ADMIT Internal Medicine; ATTEND Internal Medicine